=== PATIENT | male | born 1980 | race Caucasian/White ===

== ENCOUNTER 2018-08-03 00:53 | Emergency (ER) | payer OTHER, MEDICAID, SELFPAY ==
[2018-08-03 01:09] VITALS: BP 142/89; PULSE 89; RESP 16; TEMP 36.6; O2SAT 97; BMI 27.6
--- NOTE | 2018-08-03 04:27 | ED_ITS ---
HPI - Recheck/Abnormal Lab/Rx General Chief Complaint: Recheck/Abnormal Lab/Rx Stated Complaint: hearing voices bad rash in groin needs med refill Time Seen by Provider: 08/03/18 04:07 Source: patient Mode of arrival: ambulatory Limitations: no limitations History of Present Illness HPI narrative: Patient is a 38-year-old male presents with need for refill of medication. Apparently states he has jock itch and once Clomid resolved cream refill. He is currently sleeping he brought his suitcase with him. At this time no other complaints. Related Data Home Medications Medication Instructions Recorded Confirmed benztropine 1 mg PO BID 08/03/18 08/03/18 clonazepam 1 mg PO BID PRN 08/03/18 08/03/18 clotrimazole 1 applic TOPICAL TID 08/03/18 08/03/18 fluoxetine 20 mg PO DAILY 08/03/18 08/03/18 gabapentin 400 mg PO QID 08/03/18 08/03/18 paliperidone 9 mg PO QAM 08/03/18 08/03/18 quetiapine 50 mg PO TID PRN 08/03/18 08/03/18 Previous Rx's Medication Instructions Recorded clotrimazole 1 applictn TOP TID #15 gram 08/03/18 quetiapine 50 mg PO TID #90 tab 08/03/18 Allergies Allergy/AdvReac Type Severity Reaction Status Date / Time No Known Drug Allergies Allergy Verified 08/03/18 01:14 Review of Systems Review of Systems GENERAL: Denies chills,fever HEENT: Denies throat pain RESPIRATORY: Denies dyspnea, cough, wheezing CARDIOVASCULAR: Denies chest pain, palpitations GASTROINTESTINAL: Denies nausea, vomiting MUSCULOSKELETAL: Denies extremity pain, injury SKIN: No rash, no laceration, no pruritus NEUROLOGIC: Denies weakness, dizziness, headache, numbness 8 point review of systems is negative except for those stated above and HPI [facility] Medical History (Updated 08/03/18 @ 05:40 by Maegan Martinez DO) Fungal infection (Acute) Schizophrenia (Acute) Social History Smoking Status: Current some day smoker Social History Smoking Status: Current some day smoker Exam Initial Vital Signs Initial Vital Signs: Vital Signs Temperature 97.8 F 08/03/18 01:09 Pulse Rate 89 08/03/18 01:09 Respiratory Rate 16 08/03/18 01:09 Blood Pressure 142/89 H 08/03/18 01:09 Pulse Oximetry 97 08/03/18 01:09 GENERAL: W well-dressed sleeping arousable only answer some questions CARDIOVASCULAR: peripheral pulses in tact, cap refill <2 sec RESPIRATORY: No respiratory distress, speaks in full sentences without difficulty EXTREMITIES: Normal range of motion, no clubbing or edema. Neurovascularly intact NEUROLOGICAL: Cranial nerves II through XII grossly intact. Normal gait and speech. SKIN: Warm, dry, no petechiae, no rashes or lesions. Course Vital Signs - 8 hr 08/03/18 01:09 Temperature 97.8 F Pulse Rate 89 Respiratory Rate 16 Blood Pressure 142/89 H Pulse Oximetry 97 Discharge Plan Departure Patient Disposition: Home Clinical Impression: Encounter for medication refill, Tinea cruris Instructions: Jock Itch Activity Restrictions/Additional Instructions: *You have been diagnosed with jock itch *Continue to take medications as directed clotrimazole 3 times daily *Follow up with your primary care provider in 2-3 days *Return to ER if you should have or any new, worsening or concerning symptoms Prescriptions: New clotrimazole 1 % cream 1 applictn TOP TID Qty: 15 RF: 0 quetiapine 50 mg tablet 50 mg PO TID Qty: 90 RF: 0 No Action gabapentin 400 mg Capsule 400 mg PO QID RF: 0 clonazepam 1 mg Tablet 1 mg PO BID PRN (Reason: Anxiety) RF: 0 fluoxetine 20 mg Tablet 20 mg PO DAILY RF: 0 benztropine 1 mg Tablet 1 mg PO BID RF: 0 clotrimazole 1 % Cream 1 applic TOPICAL TID RF: 0 quetiapine 50 mg Tablet 50 mg PO TID PRN (Reason: Agitation) RF: 0 paliperidone 9 mg Tablet Extended Release 24hr 9 mg PO QAM RF: 0
[2018-08-03 07:26] VITALS: BP 122/68; PULSE 76; RESP 14; O2SAT 98
== END 2018-08-03 07:26 | disposition home or self-care (01) ==
PROVIDERS: Emergency Provider Emergency Medicine
DX: B35.6 Tinea cruris (principal); Z76.0 Encounter for issue of repeat prescription
CPT/HCPCS: 99281; 99282

== ENCOUNTER 2018-08-18 08:09 | Emergency (ER) | payer OTHER, MEDICAID, SELFPAY ==
[2018-08-18 08:12] VITALS: BP 132/89; PULSE 63; RESP 16; TEMP 36.2; O2SAT 97; BMI 27.8
--- NOTE | 2018-08-18 08:18 | ED.PSYCH ---
HPI - Psych General Chief Complaint: Psychiatric Symptoms Stated Complaint: hearing voices Time Seen by Provider: 08/18/18 08:09 Source: patient and EMS Mode of arrival: EMS Limitations: no limitations History of Present Illness HPI Narrative: Patient comes to the emergency department complaining of hallucinations since running out of his meds 2 weeks ago. Patient has a history of schizophrenia, and is on multiple medications for this. He patient states that the voices have not been telling him to harm himself, but does note that he feels that the voices want to kill him. The patient denies any homicidal ideation. He denies any other medical problems besides his schizophrenia. He states that he has not been feeling ill in any other way. He denies pain anywhere. No fevers. No cough or shortness of breath. No trauma. No other complaints at this time. Related Data Home Medications Medication Instructions Recorded Confirmed quetiapine 50 mg PO TID PRN 08/03/18 08/18/18 Previous Rx's Medication Instructions Recorded clotrimazole 1 applictn TOP TID #15 gram 08/03/18 gabapentin 400 mg PO BID #30 cap 08/03/18 benztropine 1 mg PO BID #20 tab 08/18/18 clonazepam 1 mg PO BID PRN #20 tab 08/18/18 clotrimazole 1 applic TOPICAL TID #1 tube 08/18/18 fluoxetine 20 mg PO DAILY #10 tab 08/18/18 gabapentin 400 mg PO QID #30 cap 08/18/18 paliperidone 9 mg PO QAM #10 tab 08/18/18 quetiapine 50 mg PO TID #90 tab 08/18/18 Allergies Allergy/AdvReac Type Severity Reaction Status Date / Time No Known Drug Allergies Allergy Verified 08/18/18 08:12 Review of Systems Constitutional Denies chills, Denies fever(s), Denies lethargy and Denies weakness Eyes Denies change in vision, Denies eye discharge, Denies irritation and Denies loss of vision ENT Ears, Nose, Mouth, and Throat: Denies change in voice, Denies neck pain and Denies sore throat Cardiovascular Denies chest pain, Denies irregular heart rhythm, Denies lightheadedness, Denies palpitations, Denies dyspnea, Denies dyspnea on exertion and Denies orthopnea Respiratory Denies cough, Denies dyspnea, Denies dyspnea on exertion and Denies wheezing Gastrointestinal Gastrointestinal: Denies abdominal pain, Denies change in bowel habits, Denies diarrhea, Denies nausea and Denies vomiting Genitourinary Denies hematuria, Denies flank pain, Denies urinary incontinence and Denies urinary urgency Musculoskeletal Denies neck pain Integumentary/Breasts Denies pruritus, Denies erythema, Denies rash and Denies wounds Neurologic Denies confusion, Denies loss of vision and Denies weakness Psychiatric Denies anxiety, Denies confusion, Denies depression, Reports auditory hallucinations, Denies homicidal ideation and Denies suicidal ideation Endocrine Denies palpitations Hematologic/Lymphatic Denies easy bruising Allergic/Immunologic Denies wheezing [facility] Medical History Fungal infection (Acute) Schizophrenia (Acute) Social History Smoking Status: Current some day smoker Social History Smoking Status: Current some day smoker Exam Initial Vital Signs Initial Vital Signs: Vital Signs Temperature 97.1 F L 08/18/18 08:12 Pulse Rate 63 08/18/18 08:12 Respiratory Rate 16 08/18/18 08:12 Blood Pressure 132/89 08/18/18 08:12 Pulse Oximetry 97 08/18/18 08:12 Const General: cooperative and well developed Nutritional Appearance: well nourished Orientation: alert, awake, oriented x3 and not confused [facility] Head: normocephalic and atraumatic Ears: external ears normal and TM's normal bilaterally Nose: external nose normal and No nasal discharge Face and sinus: sinuses nontender, face symmetric, no sinus tenderness and No dry mucous membranes Mouth: oral mucosae normal and moist mucous membranes Teeth and gingiva: dentition normal Throat: tonsils normal and uvula midline Eyes General: appearance normal, both eyes and all related structures Eyelids: eyelids normal Conjunctivae: conjunctivae normal Sclera: sclerae normal Pupils: PERRL EOM: EOM intact bilaterally Neck Neck: normal visual inspection, trachea midline, No lymphadenopathy, No midline deformity and No JVD Lymphatic: No lymphedema Chest Chest: normal inspection of the chest Resp Effort & Inspection: normal respiratory effort, able to speak in complete sentences, no respiratory distress and no use of accessory muscles Auscultation: clear to auscultation bilaterally, no rales, no rhonchi and no wheezes Cardio Rate: regular rate Rhythm: regular rhythm Heart Sounds: no click, no gallops, no murmurs and no rubs Pulses: normal peripheral pulses GI Inspection: non-distended Palpation: soft, no hepatosplenomegaly, No guarding, No pulsatile mass and No tender Auscultation: normal bowel sounds Back/Spine/Pelvis Back: No CVA tenderness Cervical Spine: cervical ROM normal and No pain with cervical ROM Thoracic/Lumbar Spine: thoracic and lumbar spine normal to inspection Skin General: no rashes or lesions noted, No jaundice and No petechiae Neuro General: alert, oriented x3, gait normal and no focal motor deficits Cranial Nerves: CN's II-XI intact bilaterally Speech: speech normal Other: Patient is slow to answer questions, but is appropriate, alert, and coherent. Extrem General: full ROM, no clubbing, cyanosis or edema, no pedal edema and no calf tenderness Psych Appearance: well kempt Mental Status: mental status grossly normal Attitude: cooperative Thought Content: normal and suicidality Judgment: judgment good Course Course Narrative: Patient was stable in the emergency department, and there is no evidence of him being a danger to himself. He was given doses of the medications on his list that we did have here in the hospital. He was given prescriptions for all of his medications to be filled pharmacy. He was instructed to follow up, as planned, with his prescribing doctor at [facility], as he is scheduled to do on the of this month. We have discussed the usual indications for return. Orders Ordered: Discontinued Medications Benztropine Mesylate (Cogentin) 1 mg PO NOW ONE Stop: 08/18/18 08:19 Last Admin: 08/18/18 08:39 Dose: 1 mg Fluoxetine HCl (Prozac) 20 mg PO NOW ONE Stop: 08/18/18 08:17 Last Admin: 08/18/18 08:40 Dose: 20 mg Gabapentin (Neurontin) 400 mg PO NOW ONE Stop: 08/18/18 08:46 Last Admin: 08/18/18 08:40 Dose: 400 mg Quetiapine Fumarate (Seroquel) 50 mg PO NOW ONE Stop: 08/18/18 08:17 Last Admin: 08/18/18 08:39 Dose: 50 mg Vital Signs - 8 hr 08/18/18 08:12 Temperature 97.1 F L Pulse Rate 63 Respiratory Rate 16 Blood Pressure 132/89 Pulse Oximetry 97 [facility] - Psych Medical Records Attestation: I reviewed the patient's medical records. Discharge Plan Departure Patient Disposition: Home Clinical Impression: Acute psychosis, Chronic schizophrenia Discharge Date/Time: 08/18/18 09:30 Interventions: ED Discharge Assessment Last Done: 08/18/18 09:29 Instructions: DI for Schizophrenia Activity Restrictions/Additional Instructions: Please take your prescriptions to the pharmacy of your choice and get back on your medications. Please keep your appointment on the at [facility], as you are scheduled to do. Prescriptions: Continued clotrimazole 1 % cream 1 applictn TOP TID Qty: 15 RF: 0 gabapentin 400 mg Capsule 400 mg PO QID Qty: 30 RF: 0 clonazepam 1 mg Tablet 1 mg PO BID PRN (Reason: Anxiety) Qty: 20 RF: 0 fluoxetine 20 mg Tablet 20 mg PO DAILY Qty: 10 RF: 0 benztropine 1 mg Tablet 1 mg PO BID Qty: 20 RF: 0 clotrimazole 1 % Cream 1 applic TOPICAL TID Qty: 1 RF: 0 quetiapine 50 mg tablet 50 mg PO TID Qty: 90 RF: 0 paliperidone 9 mg Tablet Extended Release 24hr 9 mg PO QAM Qty: 10 RF: 0 No Action quetiapine 50 mg Tablet 50 mg PO TID PRN (Reason: Agitation) RF: 0 gabapentin 400 mg capsule 400 mg PO BID Qty: 30 RF: 0
--- NOTE | 2018-08-18 08:23 | ED_ITS ---
HPI - Psych General Chief Complaint: Psychiatric Symptoms Stated Complaint: hearing voices Time Seen by Provider: 08/18/18 08:09 Source: patient and EMS Mode of arrival: EMS Limitations: no limitations History of Present Illness HPI Narrative: Patient comes to the emergency department complaining of hallucinations since running out of his meds 2 weeks ago. Patient has a history of schizophrenia, and is on multiple medications for this. He patient states that the voices have not been telling him to harm himself, but does note that he feels that the voices want to kill him. The patient denies any homicidal id eation. He denies any other medical problems besides his schizophrenia. He states that he has not been feeling ill in any other way. He denies pain anywhere. No fevers. No cough or shortness of breath. No trauma. No other complaints at this time. Related Data Home Medications Medication Instructions Recorded Confirmed quetiapine 50 mg PO TID PRN 08/03/18 08/18/18 Previous Rx's Medication Instructions Recorded clotrimazole 1 applictn TOP TID #15 gram 08/03/18 gabapentin 400 mg PO BID #30 cap 08/03/18 benztropine 1 mg PO BID #20 tab 08/18/18 clonazepam 1 mg PO BID PRN #20 tab 08/18/18 clotrimazole 1 applic TOPICAL TID #1 tube 08/18/18 fluoxetine 20 mg PO DAILY #10 tab 08/18/18 gabapentin 400 mg PO QID #30 cap 08/18/18 paliperidone 9 mg PO QAM #10 tab 08/18/18 quetiapine 50 mg PO TID #90 tab 08/18/18 Allergies Allergy/AdvReac Type Severity Reaction Status Date / Time No Known Drug Allergies Allergy Verified 08/18/18 08:12 Review of Systems Constitutional Denies chills, Denies fever(s), Denies lethargy and Denies weakness Eyes Denies change in vision, Denies eye discharge, Denies irritation and Denies loss of vision ENT Ears, Nose, Mouth, and Throat: Denies change in voice, Denies neck pain and Denies sore throat Cardiovascular Denies chest pain, Denies irregular heart rhythm, Denies lightheadedness, Denies palpitations, Denies dyspnea, Denies dyspnea on exertion and Denies orthopnea Respiratory Denies cough, Denies dyspnea, Denies dyspnea on exertion and Denies wheezing Gastrointestinal Gastrointestinal: Denies abdominal pain, Denies change in bowel habits, Denies diarrhea, Denies nausea and Denies vomiting Genitourinary Denies hematuria, Denies flank pain, Denies urinary incontinence and Denies urinary urgency Musculoskeletal Denies neck pain Integumentary/Breasts Denies pruritus, Denies erythema, Denies rash and Denies wounds Neurologic Denies confusion, Denies loss of vision and Denies weakness Psychiatric Denies anxiety, Denies confusion, Denies depression, Reports auditory hallucinations, Denies homicidal ideation and Denies suicidal ideation Endocrine Denies palpitations Hematologic/Lymphatic Denies easy bruising Allergic/Immunologic Denies wheezing [facility] Medical History Fungal infection (Acute) Schizophrenia (Acute) Social History Smoking Status: Current some day smoker Social History Smoking Status: Current some day smoker Exam Initial Vital Signs Initial Vital Signs: Vital Signs Temperature 97.1 F L 08/18/18 08:12 Pulse Rate 63 08/18/18 08:12 Respiratory Rate 16 08/18/18 08:12 Blood Pressure 132/89 08/18/18 08:12 Pulse Oximetry 97 08/18/18 08:12 Const General: cooperative and well developed Nutritional Appearance: well nourished Orientation: alert, awake, oriented x3 and not confused [facility] Head: normocephalic and atraumatic Ears: external ears normal and TM's normal bilaterally Nose: external nose normal and No nasal discharge Face and sinus: sinuses nontender, face symmetric, no sinus tenderness and No dry mucous membranes Mouth: oral mucosae normal and moist mucous membranes Teeth and gingiva: dentition normal Throat: tonsils normal and uvula midline Eyes General: appearance normal, both eyes and all related structures Eyelids: eyelids normal Conjunctivae: conjunctivae normal Sclera: sclerae normal Pupils: PERRL EOM: EOM intact bilaterally Neck Neck: normal visual inspection, trachea midline, No lymphadenopathy, No midline deformity and No JVD Lymphatic: No lymphedema Chest Chest: normal inspection of the chest Resp Effort & Inspection: normal respiratory effort, able to speak in complete sentences, no respiratory distress and no use of accessory muscles Auscultation: clear to auscultation bilaterally, no rales, no rhonchi and no wheezes Cardio Rate: regular rate Rhythm: regular rhythm Heart Sounds: no click, no gallops, no murmurs and no rubs Pulses: normal peripheral pulses GI Inspection: non-distended Palpation: soft, no hepatosplenomegaly, No guarding, No pulsatile mass and No tender Auscultation: normal bowel sounds Back/Spine/Pelvis Back: No CVA tenderness Cervical Spine: cervical ROM normal and No pain with cervical ROM Thoracic/Lumbar Spine: thoracic and lumbar spine normal to inspection Skin General: no rashes or lesions noted, No jaundice and No petechiae Neuro General: alert, oriented x3, gait normal and no focal motor deficits Cranial Nerves: CN's II-XI intact bilaterally Speech: speech normal Other: Patient is slow to answer questions, but is appropriate, alert, and coherent. Extrem General: full ROM, no clubbing, cyanosis or edema, no pedal edema and no calf tenderness Psych Appearance: well kempt Mental Status: mental status grossly normal Attitude: cooperative Thought Content: normal and suicidality Judgment: judgment good Course Course Narrative: Patient was stable in the emergency department, and there is no evidence of him being a danger to himself. He was given doses of the medications on his list that we did have here in the hospital. He was given prescriptions for all of his medications to be filled pharmacy. He was instructed to follow up, as planned, with his prescribing doctor at [facility], as he is scheduled to do on the of this month. We have discussed the usual indications for return. Orders Ordered: Discontinued Medications Benztropine Mesylate (Cogentin) 1 mg PO NOW ONE Stop: 08/18/18 08:19 Last Admin: 08/18/18 08:39 Dose: 1 mg Fluoxetine HCl (Prozac) 20 mg PO NOW ONE Stop: 08/18/18 08:17 Last Admin: 08/18/18 08:40 Dose: 20 mg Gabapentin (Neurontin) 400 mg PO NOW ONE Stop: 08/18/18 08:46 Last Admin: 08/18/18 08:40 Dose: 400 mg Quetiapine Fumarate (Seroquel) 50 mg PO NOW ONE Stop: 08/18/18 08:17 Last Admin: 08/18/18 08:39 Dose: 50 mg Vital Signs - 8 hr 08/18/18 08:12 Temperature 97.1 F L Pulse Rate 63 Respiratory Rate 16 Blood Pressure 132/89 Pulse Oximetry 97 [facility] - Psych Medical Records Attestation: I reviewed the patient's medical records. Discharge Plan Departure Patient Disposition: Home Clinical Impression: Acute psychosis, Chronic schizophrenia Discharge Date/Time: 08/18/18 09:30 Interventions: ED Discharge Assessment Last Done: 08/18/18 09:29 Instructions: DI for Schizophrenia Activity Restrictions/Additional Instructions: Please take your prescriptions to the pharmacy of your choice and get back on your medications. Please keep your appointment on the at [facility], as you are scheduled to do. Prescriptions: Continued clotrimazole 1 % cream 1 applictn TOP TID Qty: 15 RF: 0 gabapentin 400 mg Capsule 400 mg PO QID Qty: 30 RF: 0 clonazepam 1 mg Tablet 1 mg PO BID PRN (Reason: Anxiety) Qty: 20 RF: 0 fluoxetine 20 mg Tablet 20 mg PO DAILY Qty: 10 RF: 0 benztropine 1 mg Tablet 1 mg PO BID Qty: 20 RF: 0 clotrimazole 1 % Cream 1 applic TOPICAL TID Qty: 1 RF: 0 quetiapine 50 mg tablet 50 mg PO TID Qty: 90 RF: 0 paliperidone 9 mg Tablet Extended Release 24hr 9 mg PO QAM Qty: 10 RF: 0 No Action quetiapine 50 mg Tablet 50 mg PO TID PRN (Reason: Agitation) RF: 0 gabapentin 400 mg capsule 400 mg PO BID Qty: 30 RF: 0
[2018-08-18] MEDS: BENZTROPINE 1 MG TABLET PO (08:39)
[2018-08-18] MEDS: QUETIAPINE 25 MG TABLET 50 MG PO (08:39)
[2018-08-18] MEDS: FLUoxetine 20 MG CAPSULE PO (08:40)
[2018-08-18] MEDS: GABAPENTIN 400 MG CAPSULE PO (08:40)
[2018-08-18 09:25] VITALS: BP 117/58; PULSE 66; RESP 17; O2SAT 96
[2018-08-18 09:29] VITALS: BP 117/58; PULSE 67; RESP 20; O2SAT 96
== END 2018-08-18 09:30 | disposition home or self-care (01) ==
LOC: ED 09:04
PROVIDERS: Emergency Provider Emergency Medicine
DX: F20.5 Residual schizophrenia (principal)
CPT/HCPCS: 99282; 99283

== ENCOUNTER 2018-08-27 02:59 | Emergency (ER) | payer OTHER, MEDICAID, SELFPAY ==
[2018-08-27 03:09] VITALS: BP 135/98; PULSE 73; RESP 18; TEMP 36.5; O2SAT 97; BMI 27.0
[2018-08-27] MEDS: QUETIAPINE 25 MG TABLET 50 MG PO (03:45)
--- NOTE | 2018-08-27 03:47 | ED_ITS ---
HPI - Psych General Chief Complaint: Psychiatric Symptoms Stated Complaint: schizophrenia Time Seen by Provider: 08/27/18 02:59 Source: patient Mode of arrival: ambulatory Limitations: no limitations History of Present Illness HPI Narrative: 38-year-old male smoker with history of schizophrenia presents with a chief complaint of auditory hallucinations which make him feel paranoid. He denies any desire to hurt himself or others. He denies the use of alcohol or street drugs currently. He has run out of his psychotropic medications and is hoping for refills. He was seen a few days ago under similar circumstances and was given some meds here in the ED and had scrips filled, but those have since run out. He has an appointment on 08/30 MD complaint: other Onset (ago): hour(s) Duration: constant History of same: Yes Relieving factors: medication Context: not taking psychiatric medications Associated psychiatric symptoms: none Associated symptoms: denies other symptoms Treatments prior to arrival: none Related Data Previous Rx's Medication Instructions Recorded clotrimazole 1 applictn TOP TID #15 gram 08/03/18 clonazepam 1 mg PO BID PRN #20 tab 08/18/18 clotrimazole 1 applic TOPICAL TID #1 tube 08/18/18 gabapentin 400 mg PO QID #30 cap 08/18/18 quetiapine 50 mg PO TID #90 tab 08/18/18 benztropine 1 mg PO BID #20 tab 08/27/18 fluoxetine 20 mg PO DAILY #10 tab 08/27/18 gabapentin 400 mg PO BID #30 cap 08/27/18 paliperidone 9 mg PO QAM #10 tab 08/27/18 quetiapine 50 mg PO TID PRN #30 tab 08/27/18 Allergies Allergy/AdvReac Type Severity Reaction Status Date / Time No Known Drug Allergies Allergy Verified 08/18/18 08:12 Review of Systems Constitutional Denies chills, Denies fever(s), Denies lethargy and Denies weakness Eyes Denies change in vision, Denies eye discharge, Denies irritation and Denies loss of vision ENT Ears, Nose, Mouth, and Throat: Denies change in voice, Denies neck pain and Denies sore throat Cardiovascular Denies chest pain, Denies irregular heart rhythm, Denies lightheadedness, Denies palpitations, Denies dyspnea, Denies dyspnea on exertion and Denies orthopnea Respiratory Denies cough, Denies dyspnea, Denies dyspnea on exertion and Denies wheezing Gastrointestinal Gastrointestinal: Denies abdominal pain, Denies change in bowel habits, Denies diarrhea, Denies nausea and Denies vomiting Genitourinary Denies hematuria, Denies flank pain, Denies urinary incontinence and Denies urinary urgency Musculoskeletal Denies neck pain Integumentary/Breasts Denies pruritus, Denies erythema, Denies rash and Denies wounds Neurologic Denies confusion, Denies loss of vision and Denies weakness Psychiatric Denies anxiety, Denies confusion, Denies depression, Reports paranoia, Reports hallucinations, Denies homicidal ideation and Denies suicidal ideation Endocrine Denies palpitations Hematologic/Lymphatic Denies easy bruising Allergic/Immunologic Denies wheezing FOR[facility]LY [facility], LATER [facility] Medical History Fungal infection (Acute) Schizophrenia (Acute) Social History Smoking Status: Current some day smoker Social History Smoking Status: Current some day smoker Exam Narrative Exam Narrative: GENERAL: 38M resting comfortably, making good eye contact. Speaking clearly HEAD: Atraumatic. Normocephalic. No temporal or scalp tenderness. EYES: Pupils equal round and reactive. Extraocular motions intact. No scleral icterus. No injection or drainage. ENT: Nose without bleeding, purulent drainage or septal hematoma. Throat without erythema, tonsillar hypertrophy or exudate. Uvula midline. Airway patent. NECK: Trachea midline. No JVD or lymphadenopathy. Supple, nontender, no meningeal signs. CARDIOVASCULAR: Regular rate and rhythm without murmurs, gallops, or rubs. RESPIRATORY: Clear to auscultation. Breath sounds equal bilaterally. No wheezes, rales, or rhonchi. GASTROINTESTINAL: Abdomen soft, non-tender, nondistended. No hepato- splenomegaly, or palpable masses. No guarding. EXTREMITIES: No clubbing, cyanosis, or edema. No joint tenderness, effusion, or edema noted. BACK: Nontender without deformity or crepitance. No flank tenderness. NEURO: AOx3. SKIN: No rash or erythema. Initial Vital Signs Initial Vital Signs: Vital Signs Temperature 97.7 F 08/27/18 03:09 Pulse Rate 73 08/27/18 03:09 Respiratory Rate 18 08/27/18 03:09 Blood Pressure 135/98 H 08/27/18 03:09 Pulse Oximetry 97 08/27/18 03:09 Course Orders Ordered: Benztropine Mesylate (Cogentin) 1 mg PO BEDTIME MODE Gabapentin (Neurontin) 400 mg PO TID MODE Last Admin: 08/27/18 03:49 Dose: 400 mg Discontinued Medications Fluoxetine HCl (Prozac) 10 mg PO NOW ONE Stop: 08/27/18 03:15 Gabapentin (Neurontin) 400 mg PO BEDTIME MODE Quetiapine Fumarate (Seroquel) 50 mg PO NOW ONE Stop: 08/27/18 03:15 Last Admin: 08/27/18 03:45 Dose: 50 mg Vital Signs - 8 hr 08/27/18 03:09 Temperature 97.7 F Pulse Rate 73 Respiratory Rate 18 Blood Pressure 135/98 H Pulse Oximetry 97 Discharge Plan Departure Patient Disposition: Home Clinical Impression: Acute psychosis, Chronic schizophrenia Instructions: DI for Schizophrenia Activity Restrictions/Additional Instructions: Take your medications as directed Follow up at your appointment on August 30 as planned Return if worse Prescriptions: Continued gabapentin 400 mg capsule 400 mg PO BID Qty: 30 RF: 0 fluoxetine 20 mg Tablet 20 mg PO DAILY Qty: 10 RF: 0 benztropine 1 mg Tablet 1 mg PO BID Qty: 20 RF: 0 quetiapine 50 mg Tablet 50 mg PO TID PRN (Reason: Agitation) Qty: 30 RF: 0 paliperidone 9 mg Tablet Extended Release 24hr 9 mg PO QAM Qty: 10 RF: 0 No Action clotrimazole 1 % cream 1 applictn TOP TID Qty: 15 RF: 0 gabapentin 400 mg Capsule 400 mg PO QID Qty: 30 RF: 0 clonazepam 1 mg Tablet 1 mg PO BID PRN (Reason: Anxiety) Qty: 20 RF: 0 clotrimazole 1 % Cream 1 applic TOPICAL TID Qty: 1 RF: 0 quetiapine 50 mg tablet 50 mg PO TID Qty: 90 RF: 0
[2018-08-27] MEDS: GABAPENTIN 100 MG CAPSULE 400 MG PO (03:49)
--- NOTE | 2018-08-27 03:50 | PC.NURSE ---
gabapentin given from night pharmacy as 1 300mg and 1 100mg cap to total 400mg cap po.
[2018-08-27 04:25] VITALS: BP 144/82; PULSE 81; RESP 14; O2SAT 98
== END 2018-08-27 04:26 | disposition home or self-care (01) ==
PROVIDERS: Emergency Provider Emergency Medicine
DX: F23 Brief psychotic disorder (principal); F20.9 Schizophrenia, unspecified
CPT/HCPCS: 99282; 99283

== ENCOUNTER 2018-08-28 22:42 | Emergency (ER) | payer OTHER, MEDICAID, SELFPAY ==
[2018-08-28 22:52] VITALS: BP 149/91; PULSE 100; RESP 14; TEMP 36.8; O2SAT 95; BMI 32.5
--- NOTE | 2018-08-28 23:19 | ED.PSYCH ---
HPI - Psych General Chief Complaint: Psychiatric Symptoms Stated Complaint: SORE FEET, WANTS BRAIN IMAGING DONE Time Seen by Provider: 08/28/18 22:57 Source: patient Mode of arrival: ambulatory Limitations: no limitations History of Present Illness HPI Narrative: Patient is a 38-year-old male. Was seen here couple nights ago and diagnosed with acute psychosis and had his schizophrenia medicine refill. He states that he has feel this medication. He states that the voices he is hearing or much improved from the other night. He states he is not suicidal. Not homicidal. Has a follow-up on Sunday morning with a mental health provider. Has a follow-up with a primary provider later on this month. He states that he is taking his medications. Denies any alcohol or drug use. He states that he is here for 2 reasons. He states that he has a sore on the bottom of his right foot that is causing him quite a bit of discomfort. He states that is because his shoes rubbing him in this area. He is also here for ?brain imaging? he states that ?2 particles ?are ?tangled ?in his head. He asked if there was a procedure were you remove a portion of your left eye to do with the ?particles ?in your ?cranium ? Related Data Previous Rx's Medication Instructions Recorded clotrimazole 1 applictn TOP TID #15 gram 08/03/18 clonazepam 1 mg PO BID PRN #20 tab 08/18/18 clotrimazole 1 applic TOPICAL TID #1 tube 08/18/18 gabapentin 400 mg PO QID #30 cap 08/18/18 quetiapine 50 mg PO TID #90 tab 08/18/18 benztropine 1 mg PO BID #20 tab 08/27/18 fluoxetine 20 mg PO DAILY #10 tab 08/27/18 gabapentin 400 mg PO BID #30 cap 08/27/18 paliperidone 9 mg PO QAM #10 tab 08/27/18 quetiapine 50 mg PO TID PRN #30 tab 08/27/18 Allergies Allergy/AdvReac Type Severity Reaction Status Date / Time No Known Drug Allergies Allergy Verified 08/28/18 22:52 Review of Systems Constitutional Denies frequent falls and Denies headache(s) Eyes Denies change in vision ENT Ears, Nose, Mouth, and Throat: Denies facial pain, Denies headache(s) and Denies disequilibrium Cardiovascular Denies chest pain, Denies syncope and Denies dyspnea Respiratory Denies dyspnea Gastrointestinal Gastrointestinal: Denies abdominal pain Musculoskeletal Denies myalgias and Denies arthralgias Integumentary/Breasts Denies rash Neurologic Denies behavioral changes, Denies confusion, Denies syncope, Denies frequent falls, Denies headache(s), Denies memory loss, Denies paresthesias and Denies disequilibrium Psychiatric Denies behavioral changes, Denies confusion, Reports auditory hallucinations, Denies memory loss, Denies panic attacks, Denies visual hallucinations, Denies homicidal ideation and Denies suicidal ideation Hematologic/Lymphatic Denies easy bleeding and Denies easy bruising FOR[facility]LY [facility], LATER [facility] Medical History Fungal infection (Acute) Schizophrenia (Acute) Social History Smoking Status: Current some day smoker Exam Initial Vital Signs Initial Vital Signs: Vital Signs Temperature 98.2 F 08/28/18 22:52 Pulse Rate 100 H 08/28/18 22:52 Respiratory Rate 14 08/28/18 22:52 Blood Pressure 149/91 H 08/28/18 22:52 Pulse Oximetry 95 08/28/18 22:52 Const General: cooperative, comfortable, well developed, well groomed and No acute distress Orientation: alert, awake, oriented x3, oriented to person, oriented to place, oriented to time and not confused Limitations: mental status not altered HENMT Head: normal to inspection and normocephalic Resp Effort & Inspection: normal respiratory effort Cardio Rate: regular rate Skin Other: Patient with a 2 mm blister on the back of his right heel right where the back of his shoe rubs this area. He also has findings consistent with tinea of his toes Neuro General: alert, awake, oriented x3, gait normal and moves all extremities Speech: speech normal Motor: muscle tone normal throughout Sensory Exam: no sensory deficits noted Extrem General: normal to inspection and capillary refill normal Psych Appearance: grossly normal, well kempt and not disheveled Speech and Movement: speech and movement normal, not agitated, speech clear, speech not pressured, not restless and movement not slowed Mood: congruent mood Affect: normal affect Attitude: cooperative Thought Process: illogical Thought Content: no hallucinations, no homicidality, no obsessions and suicidality Judgment: fair Course Vital Signs - 8 hr 08/28/18 22:52 Temperature 98.2 F Pulse Rate 100 H Respiratory Rate 14 Blood Pressure 149/91 H Pulse Oximetry 95 MDM - Psych MDM Narrative Medical decision making narrative: Patient with a blister on the back of his right heel. Most likely caused by rubbing of his shoe. He was provided a bandage. Patient was alert and oriented x3. Was well dressed. Was well hydrated. Was well fed. Send no acute distress. I do not feel that he meets criteria for grave disability. He denies homicidal or suicidality. He knew of his appointment on Sunday with his mental health provider. He states he could not remember the exact time but he did have it written down. He also states that he has an appointment with his primary provider either at the end of this month with the beginning of next month. Again he cannot provide an exact date or time but stated that he did have a written down. He is currently taking his medications. He reports an improvement of his auditory hallucinations since his visit a couple days ago. Most likely because he is taking his medication. I tried to inform the patient that there was no indication to obtain ?brain imaging ?tried to reassure him that I thought that we should get him in to see his mental health provider on Sunday before any imaging is performed. Patient was given return precautions and follow-up instructions. He expressed understanding and agreement with plan. Discharge Plan Departure Patient Disposition: Home Clinical Impression: Friction blisters of the skin Instructions: DI for Blisters Activity Restrictions/Additional Instructions: Continue taking all of your medications as directed. Be sure to keep your appointment that she have scheduled with your mental health provider on Sunday. Also be sure to keep your appointment with her primary provider later on this month. I recommend that you change your socks often. You can return to the emergency department for any new or worsening symptoms Prescriptions: No Action clotrimazole 1 % cream 1 applictn TOP TID Qty: 15 RF: 0 gabapentin 400 mg Capsule 400 mg PO QID Qty: 30 RF: 0 clonazepam 1 mg Tablet 1 mg PO BID PRN (Reason: Anxiety) Qty: 20 RF: 0 clotrimazole 1 % Cream 1 applic TOPICAL TID Qty: 1 RF: 0 quetiapine 50 mg tablet 50 mg PO TID Qty: 90 RF: 0 gabapentin 400 mg capsule 400 mg PO BID Qty: 30 RF: 0 fluoxetine 20 mg Tablet 20 mg PO DAILY Qty: 10 RF: 0 benztropine 1 mg Tablet 1 mg PO BID Qty: 20 RF: 0 quetiapine 50 mg Tablet 50 mg PO TID PRN (Reason: Agitation) Qty: 30 RF: 0 paliperidone 9 mg Tablet Extended Release 24hr 9 mg PO QAM Qty: 10 RF: 0
== END 2018-08-28 23:30 | disposition home or self-care (01) ==
PROVIDERS: Emergency Provider Emergency Medicine
DX: S90.821A Blister (nonthermal), right foot, initial encounter (principal); R44.0 Auditory hallucinations
CPT/HCPCS: 99282

== ENCOUNTER 2018-08-31 21:58 | Emergency (ER) | payer OTHER, MEDICAID, SELFPAY ==
--- NOTE | 2018-08-31 22:03 | ED_ITS ---
HPI - Altered Mental Status General Chief Complaint: Shortness of Breath/Dyspnea Stated Complaint: Altered mental status Time Seen by Provider: 08/31/18 22:03 Source: patient and EMS Mode of arrival: EMS History of Present Illness HPI narrative: Patient is a 38-year-old male who I evaluated in this emergency department in the past. He arrived by EMS after they were called to local gas [facility] where the report was that the patient was ?having a mental breakdown? EMS was unsure the exact situation. Patient stated that he called 911 because he was having problems breathing. Patient is known as schizophrenia. Last time I evaluated the patient he was supposed to have a follow-up appoint with his mental health provider. Patient states that he missed that appointment. He states that he is taking his other medications. States that he still is hearing voices. No thoughts of hurting himself or others. Patient states he feels like he is wheezing. States he does have an inhaler in the bag that he has with him. Patient states that he is using the inhaler occasionally. Related Data Previous Rx's Medication Instructions Recorded clotrimazole 1 applictn TOP TID #15 gram 08/03/18 clonazepam 1 mg PO BID PRN #20 tab 08/18/18 clotrimazole 1 applic TOPICAL TID #1 tube 08/18/18 gabapentin 400 mg PO QID #30 cap 08/18/18 quetiapine 50 mg PO TID #90 tab 08/18/18 benztropine 1 mg PO BID #20 tab 08/27/18 fluoxetine 20 mg PO DAILY #10 tab 08/27/18 gabapentin 400 mg PO BID #30 cap 08/27/18 paliperidone 9 mg PO QAM #10 tab 08/27/18 quetiapine 50 mg PO TID PRN #30 tab 08/27/18 gabapentin 400 mg PO BID #60 cap 08/31/18 Allergies Allergy/AdvReac Type Severity Reaction Status Date / Time No Known Drug Allergies Allergy Verified 08/28/18 22:52 Review of Systems Constitutional Denies fever(s) Cardiovascular Denies chest pain and Reports dyspnea Respiratory Reports cough, Reports dyspnea and Reports wheezing Gastrointestinal Gastrointestinal: Denies abdominal pain Integumentary/Breasts Denies rash Psychiatric Reports hallucinations, Denies homicidal ideation and Denies suicidal ideation Hematologic/Lymphatic Denies easy bleeding and Denies easy bruising Allergic/Immunologic Reports wheezing Exam Initial Vital Signs Initial Vital Signs: Vital Signs Temperature 97.8 F 08/31/18 22:04 Pulse Rate 91 H 08/31/18 22:04 Respiratory Rate 15 08/31/18 22:04 Blood Pressure 132/82 08/31/18 22:04 Pulse Oximetry 96 08/31/18 22:04 Const General: comfortable, well groomed and No acute distress Orientation: alert, awake, oriented to person and oriented to place [facility] Head: normal to inspection and normocephalic Resp Effort & Inspection: normal respiratory effort, not labored and not tachypneic Auscultation: wheezes (Bilateral) Cardio Rate: regular rate Rhythm: regular rhythm Skin Lesions: no lesions Rashes: no rashes Neuro General: alert and awake Speech: speech normal Extrem General: capillary refill normal Psych Appearance: grossly normal and well kempt Speech and Movement: not agitated Mood: congruent mood and not manic Affect: No hostile Attitude: cooperative Thought Content: suicidality Judgment: fair Course Orders Ordered: Discontinued Medications Albuterol/Ipratropium (Duoneb) 3 ml INH NOW ONE Stop: 08/31/18 22:09 Last Admin: 08/31/18 22:29 Dose: 3 ml Vital Signs - 8 hr 08/31/18 22:04 08/31/18 22:08 08/31/18 22:29 Temperature 97.8 F 97.8 F Pulse Rate 91 H 91 H 83 Respiratory Rate 15 15 18 Blood Pressure 132/82 Blood Pressure [Left Arm] 132/82 Pulse Oximetry 96 96 99 08/31/18 23:19 Temperature 97.7 F Pulse Rate 83 Respiratory Rate 16 Blood Pressure 134/104 H Blood Pressure [Left Arm] Pulse Oximetry 95 MDM - Altered Mental Status MDM Narrative Medical decision making narrative: Patient received DuoNeb which did seem to improve his wheezing quite a bit. He also states that improved his symptoms. He does have albuterol in his bag with a AeroChamber. He asked for refill of his gabapentin. No other signs of trauma. Patient is not suicidal. He states he is taking all of his other medications. He stated that he was going to reschedule his follow-up with his mental health provider. He stated that he felt okay leaving. Discharge Plan Departure Patient Disposition: Home Clinical Impression: Reactive airway disease Qualifiers: Asthma severity: unspecified severity Asthma persistence: unspecified Asthma complication type: uncomplicated Qualified Code(s): J45.909 - Unspecified asthma, uncomplicated Discharge Date/Time: 08/31/18 23:21 Interventions: ED Discharge Assessment Last Done: 08/31/18 23:19 Instructions: Reactive Airway Disease-Adult Activity Restrictions/Additional Instructions: Recommend that you use your albuterol inhaler every 4 hours for the next 24 hours. After that you can use it as needed. Contact your primary doctor for a follow-up. Prescriptions: New gabapentin 400 mg capsule 400 mg PO BID Qty: 60 RF: 0 No Action clotrimazole 1 % cream 1 applictn TOP TID Qty: 15 RF: 0 gabapentin 400 mg Capsule 400 mg PO QID Qty: 30 RF: 0 clonazepam 1 mg Tablet 1 mg PO BID PRN (Reason: Anxiety) Qty: 20 RF: 0 clotrimazole 1 % Cream 1 applic TOPICAL TID Qty: 1 RF: 0 quetiapine 50 mg tablet 50 mg PO TID Qty: 90 RF: 0 gabapentin 400 mg capsule 400 mg PO BID Qty: 30 RF: 0 fluoxetine 20 mg Tablet 20 mg PO DAILY Qty: 10 RF: 0 benztropine 1 mg Tablet 1 mg PO BID Qty: 20 RF: 0 quetiapine 50 mg Tablet 50 mg PO TID PRN (Reason: Agitation) Qty: 30 RF: 0 paliperidone 9 mg Tablet Extended Release 24hr 9 mg PO QAM Qty: 10 RF: 0
[2018-08-31 22:04] VITALS: BP 132/82; PULSE 91; RESP 15; TEMP 36.6; O2SAT 96
[2018-08-31 22:08] VITALS: BP 132/82; PULSE 91; RESP 15; TEMP 36.6; O2SAT 96; BMI 31.3
[2018-08-31 22:29] VITALS: PULSE 83; RESP 18; O2SAT 99
[2018-08-31] MEDS: ALBUTEROL/IPRATROPIUM 3 ML AMPUL INH (22:29)
[2018-08-31 23:19] VITALS: BP 134/104; PULSE 83; RESP 16; TEMP 36.5; O2SAT 95
== END 2018-08-31 23:21 | disposition home or self-care (01) ==
PROVIDERS: Emergency Provider Emergency Medicine
DX: J45.909 Unspecified asthma, uncomplicated (principal)
CPT/HCPCS: 94640; 99282; 99283

== ENCOUNTER 2018-09-02 20:48 | Emergency (ER) | payer OTHER, MEDICAID, SELFPAY ==
[2018-09-02 21:17] VITALS: BP 124/78; PULSE 80; RESP 16; TEMP 36.8; O2SAT 96; BMI 27.8
[2018-09-03 01:27] VITALS: BP 102/67; PULSE 62; RESP 13; TEMP 36.2; O2SAT 97
--- NOTE | 2018-09-03 03:51 | ED_ITS ---
HPI - Skin/Abscess/Foreign Bdy General Chief complaint: Skin/Abscess/Foreign Body Stated complaint: Rash Time Seen by Provider: 09/03/18 00:39 Source: patient and old records reviewed Mode of arrival: ambulatory Limitations: no limitations History of Present Illness HPI narrative: the patient is a 38-year-old male, with history of schizophrenia, presenting with a rash on his buttocks. He states that it is pruritic and painful in nature. He has had frequent emergency department visits here recently. For medication refills and other various things. He is homeless. He states that he has had a rash on his buttocks initial time and feels like it might be worse. He was previously seen for tinea cruris. He is sleeping initially appears comfortable. He really has no other complaints today. Unclear how long this rash has been there. MD complaint: rash Related Data Previous Rx's Medication Instructions Recorded clotrimazole 1 applictn TOP TID #15 gram 08/03/18 clonazepam 1 mg PO BID PRN #20 tab 08/18/18 clotrimazole 1 applic TOPICAL TID #1 tube 08/18/18 gabapentin 400 mg PO QID #30 cap 08/18/18 quetiapine 50 mg PO TID #90 tab 08/18/18 benztropine 1 mg PO BID #20 tab 08/27/18 fluoxetine 20 mg PO DAILY #10 tab 08/27/18 gabapentin 400 mg PO BID #30 cap 08/27/18 paliperidone 9 mg PO QAM #10 tab 08/27/18 quetiapine 50 mg PO TID PRN #30 tab 08/27/18 gabapentin 400 mg PO BID #60 cap 08/31/18 clotrimazole 1 applictn TOP BID 14 Days #56.7 09/03/18 gram Allergies Allergy/AdvReac Type Severity Reaction Status Date / Time No Known Drug Allergies Allergy Verified 08/28/18 22:52 Review of Systems Review of Systems GENERAL: Denies chills,fever HEENT: Denies throat pain RESPIRATORY: Denies dyspnea, cough, wheezing CARDIOVASCULAR: Denies chest pain, palpitations GASTROINTESTINAL: Denies nausea, vomiting MUSCULOSKELETAL: Denies extremity pain, injury SKIN: See HPI NEUROLOGIC: Denies weakness, dizziness, headache, numbness 8 point review of systems is negative except for those stated above and HPI REPLACED BY [facility] Medical History Fungal infection (Acute) Schizophrenia (Acute) Social History Smoking Status: Current some day smoker Social History Smoking Status: Current some day smoker Exam Initial Vital Signs Initial Vital Signs: Vital Signs Temperature 98.2 F 09/02/18 21:17 Pulse Rate 80 09/02/18 21:17 Respiratory Rate 16 09/02/18 21:17 Blood Pressure 124/78 09/02/18 21:17 Pulse Oximetry 96 09/02/18 21:17 GENERAL: Sleeping easily arousable calm cooperative CARDIOVASCULAR: peripheral pulses in tact, cap refill <2 sec RESPIRATORY: No respiratory distress, speaks in full sentences without difficulty EXTREMITIES: Normal range of motion, no clubbing or edema. Neurovascularly intact NEUROLOGICAL: Cranial nerves II through XII grossly intact. Normal gait and speech. SKIN: Some acne noted on the buttocks no all large abscess fluctuation or induration. Some possible Araceli between the buttocks themselves. No vesicles. No petechiae. Course Vital Signs - 8 hr 09/02/18 21:17 09/03/18 01:27 Temperature 98.2 F 97.1 F L Pulse Rate 80 62 Respiratory Rate 16 13 Blood Pressure 124/78 102/67 Pulse Oximetry 96 97 MDM - Skin/Abscess/Foreign Bdy MDM Narrative Medical decision making narrative: I have given patient soap and a washcloth and encouraged him to keep this clean as possible. Discharge Plan Departure Patient Disposition: Home Clinical Impression: Araceli albicans infection Discharge Date/Time: 09/03/18 01:33 Interventions: ED Discharge Assessment Last Done: 09/03/18 01:27 Instructions: Yeast Infection-Skin Activity Restrictions/Additional Instructions: *You have been diagnosed with fungus *What to do: Keep area clean and dry with soap and water *Continue to take medications as directed Apply Clotrimazole cream 2 times daily *Follow up with your primary care provider in 2-3 days *Return to ER if you should have any new, worsening or concerning symptoms Prescriptions: New clotrimazole 1 % ointment 1 applictn TOP BID 14 Days Qty: 56.7 RF: 0 No Action clotrimazole 1 % cream 1 applictn TOP TID Qty: 15 RF: 0 gabapentin 400 mg Capsule 400 mg PO QID Qty: 30 RF: 0 clonazepam 1 mg Tablet 1 mg PO BID PRN (Reason: Anxiety) Qty: 20 RF: 0 clotrimazole 1 % Cream 1 applic TOPICAL TID Qty: 1 RF: 0 quetiapine 50 mg tablet 50 mg PO TID Qty: 90 RF: 0 gabapentin 400 mg capsule 400 mg PO BID Qty: 30 RF: 0 fluoxetine 20 mg Tablet 20 mg PO DAILY Qty: 10 RF: 0 benztropine 1 mg Tablet 1 mg PO BID Qty: 20 RF: 0 quetiapine 50 mg Tablet 50 mg PO TID PRN (Reason: Agitation) Qty: 30 RF: 0 paliperidone 9 mg Tablet Extended Release 24hr 9 mg PO QAM Qty: 10 RF: 0 gabapentin 400 mg capsule 400 mg PO BID Qty: 60 RF: 0
== END 2018-09-03 01:33 | disposition home or self-care (01) ==
PROVIDERS: Emergency Provider Emergency Medicine
DX: B37.9 Candidiasis, unspecified (principal)
CPT/HCPCS: 99282; 99283

== ENCOUNTER 2018-09-27 02:03 | Emergency (ER) | payer OTHER, MEDICAID, SELFPAY ==
[2018-09-27 02:10] VITALS: BP 120/90; PULSE 88; RESP 18; TEMP 36.7; O2SAT 96
[2018-09-27] MEDS: OLANZapine ODT 10 MG TAB PO (02:22)
--- NOTE | 2018-09-27 02:33 | ED_ITS ---
HPI - Psych General Chief Complaint: Psychiatric Symptoms Stated Complaint: schizophrenia Time Seen by Provider: 09/27/18 02:03 Source: patient Mode of arrival: ambulatory Limitations: no limitations History of Present Illness HPI Narrative: 38-year-old male nonsmoker with history of schizophrenia returns to the emergency department with a chief complaint of auditory hallucinations. He is well-known to this facility and frequently comes to see us when he is out of his medications. He states he has been out of them for about a week. He is currently between providers and has to get refills at emergency department. He denies any suicidal or homicidal ideations. He denies any use of alcohol or street drugs. He denies any other symptoms such as dizziness, weakness or lightheadedness. He denies any chest pain or shortness of breath. He is hoping to get in with [facility] sooner rather than later Onset (ago): day(s) Duration: constant History of same: Yes Relieving factors: none and medication Exacerbating factors: none Associated psychiatric symptoms: auditory hallucinations Treatments prior to arrival: none Related Data Previous Rx's Medication Instructions Recorded clotrimazole 1 applictn TOP TID #15 gram 08/03/18 clonazepam 1 mg PO BID PRN #20 tab 08/18/18 clotrimazole 1 applic TOPICAL TID #1 tube 08/18/18 gabapentin 400 mg PO BID #30 cap 08/27/18 quetiapine 50 mg PO TID PRN #30 tab 08/27/18 gabapentin 400 mg PO BID #60 cap 08/31/18 benztropine 1 mg PO BID #20 tab 09/27/18 fluoxetine 20 mg PO DAILY #10 tab 09/27/18 gabapentin 400 mg PO QID #10 cap 09/27/18 paliperidone 9 mg PO QAM #10 tab 09/27/18 quetiapine 50 mg PO TID #15 tab 09/27/18 Allergies Allergy/AdvReac Type Severity Reaction Status Date / Time No Known Drug Allergies Allergy Verified 08/28/18 22:52 Review of Systems Constitutional Denies chills, Denies fever(s), Denies lethargy and Denies weakness Eyes Denies change in vision, Denies eye discharge, Denies irritation and Denies loss of vision ENT Ears, Nose, Mouth, and Throat: Denies change in voice, Denies neck pain and Denies sore throat Cardiovascular Denies chest pain, Denies irregular heart rhythm, Denies lightheadedness, Denies palpitations, Denies dyspnea, Denies dyspnea on exertion and Denies orthopnea Respiratory Denies cough, Denies dyspnea, Denies dyspnea on exertion and Denies wheezing Gastrointestinal Gastrointestinal: Denies abdominal pain, Denies change in bowel habits, Denies diarrhea, Denies nausea and Denies vomiting Genitourinary Denies hematuria, Denies flank pain, Denies urinary incontinence and Denies urinary urgency Musculoskeletal Denies neck pain Integumentary/Breasts Denies pruritus, Denies erythema, Denies rash and Denies wounds Neurologic Denies confusion, Denies loss of vision and Denies weakness Psychiatric Denies anxiety, Denies confusion, Denies depression, Reports hallucinations, Denies homicidal ideation and Denies suicidal ideation Endocrine Denies palpitations Hematologic/Lymphatic Denies easy bruising Allergic/Immunologic Denies wheezing [facility] Medical History Fungal infection (Acute) Schizophrenia (Acute) Social History Smoking Status: Current some day smoker Social History Smoking Status: Current some day smoker Exam Narrative Exam Narrative: GENERAL: 38-year-old male, slightly disheveled appears his stated age, flat affect HEAD: Atraumatic. Normocephalic. No temporal or scalp tenderness. EYES: Pupils equal round and reactive. Extraocular motions intact. ENT: Nose without bleeding, purulent drainage or septal hematoma. NECK: Trachea midline. No JVD or lymphadenopathy. CARDIOVASCULAR: Regular rate and rhythm without murmurs, gallops, or rubs. RESPIRATORY: Clear to auscultation. GASTROINTESTINAL: Abdomen soft, non-tender, EXTREMITIES: No clubbing, cyanosis, or edema. BACK: Nontender NEURO: AOx3. SKIN: No rash or erythema. Initial Vital Signs Initial Vital Signs: Vital Signs Temperature 98.1 F 09/27/18 02:10 Pulse Rate 88 09/27/18 02:10 Respiratory Rate 18 09/27/18 02:10 Blood Pressure 120/90 09/27/18 02:10 Pulse Oximetry 96 09/27/18 02:10 Course Orders Ordered: Discontinued Medications Olanzapine (Zyprexa Zydis) 10 mg PO NOW ONE Stop: 09/27/18 02:19 Last Admin: 09/27/18 02:22 Dose: 10 mg Vital Signs - 8 hr 09/27/18 02:10 Temperature 98.1 F Pulse Rate 88 Respiratory Rate 18 Blood Pressure 120/90 Pulse Oximetry 96 Discharge Plan Departure Patient Disposition: Home Clinical Impression: Schizophrenia Qualifiers: Schizophrenia type: unspecified Qualified Code(s): F20.9 - Schizophrenia, unspecified Discharge Date/Time: 09/27/18 02:39 Instructions: DI for Schizophrenia Activity Restrictions/Additional Instructions: *You have been diagnosed with [acute on chronic schizophrenia with medical noncompliance] *What to do: *Take medications as directed *Follow up with your primary care provider in 2-3 days, call for an appointment. Let them know you were seen in the Emergency Department and that we ask that you be seen in follow up *Return to ER if you should have any new, worsening or concerning symptoms Prescriptions: Continued gabapentin 400 mg Capsule 400 mg PO QID Qty: 10 RF: 0 fluoxetine 20 mg Tablet 20 mg PO DAILY Qty: 10 RF: 0 benztropine 1 mg Tablet 1 mg PO BID Qty: 20 RF: 0 quetiapine 50 mg tablet 50 mg PO TID Qty: 15 RF: 0 paliperidone 9 mg Tablet Extended Release 24hr 9 mg PO QAM Qty: 10 RF: 0 No Action clotrimazole 1 % cream 1 applictn TOP TID Qty: 15 RF: 0 clonazepam 1 mg Tablet 1 mg PO BID PRN (Reason: Anxiety) Qty: 20 RF: 0 clotrimazole 1 % Cream 1 applic TOPICAL TID Qty: 1 RF: 0 gabapentin 400 mg capsule 400 mg PO BID Qty: 30 RF: 0 quetiapine 50 mg Tablet 50 mg PO TID PRN (Reason: Agitation) Qty: 30 RF: 0 gabapentin 400 mg capsule 400 mg PO BID Qty: 60 RF: 0 [facility]errals: [facility] [Outside] Boogie Andrade MD [Physician] -
[2018-09-27 02:39] VITALS: BP 123/71; PULSE 84; RESP 16; O2SAT 95
== END 2018-09-27 02:39 | disposition home or self-care (01) ==
PROVIDERS: Emergency Provider Emergency Medicine
DX: F20.9 Schizophrenia, unspecified (principal)
CPT/HCPCS: 99282; 99283

== ENCOUNTER 2018-09-29 21:17 | Emergency (ER) | payer OTHER, MEDICAID, SELFPAY ==
[2018-09-29 21:20] VITALS: BP 147/86; PULSE 85; RESP 16; TEMP 37.1; O2SAT 98; BMI 27.8
--- NOTE | 2018-09-29 21:25 | ED_ITS ---
HPI - General Adult <Mark Beard DO - Last Filed: 09/30/18 18:44> General Chief complaint: Psychiatric Symptoms Stated complaint: states intense voices in head, hallucenations Time Seen by Provider: 09/29/18 21:24 Source: patient Mode of arrival: ambulatory Limitations: no limitations History of Present Illness HPI narrative: Patient is a 38-year-old male. Known history of schizophrenia. Has been seen here in the emergency department multiple times the past for medication refills. I evaluated him in the past. He returns to the emergency department today stating that the voices that he is hearing are much more intrusive and frightening to him. He states that they are telling him that they are going to kill him. They talked about ?murder ?he does not specifically state whether not they are telling him to hurt others. He currently states he is not suicidal. He did not take his medications today. There is a question of whether not he has been taking them for the past couple days. He states the medications ?are not working ?. He denies any drugs or alcohol use. No trauma. Related Data Home Medications Medication Instructions Recorded Confirmed gabapentin 400 mg PO QID 09/30/18 09/30/18 Previous Rx's Medication Instructions Recorded clotrimazole 1 applictn TOP TID #15 gram 08/03/18 clonazepam 1 mg PO BID PRN #20 tab 08/18/18 benztropine 1 mg PO BID #20 tab 09/27/18 fluoxetine 20 mg PO DAILY #10 tab 09/27/18 paliperidone 9 mg PO QAM #10 tab 09/27/18 quetiapine 50 mg PO TID #15 tab 09/27/18 gabapentin 400 mg PO QID 10 Days #40 cap 09/30/18 ibuprofen 800 mg PO TID PRN #10 tab 09/30/18 Allergies Allergy/AdvReac Type Severity Reaction Status Date / Time No Known Drug Allergies Allergy Verified 08/28/18 22:52 Review of Systems <Mark Beard DO - Last Filed: 09/30/18 18:44> Constitutional Denies headache(s) ENT Ears, Nose, Mouth, and Throat: Denies headache(s) Cardiovascular Denies chest pain and Denies dyspnea Respiratory Denies dyspnea Gastrointestinal Gastrointestinal: Denies abdominal pain, Denies nausea and Denies vomiting Genitourinary Denies dysuria Musculoskeletal Denies myalgias and Denies arthralgias Integumentary/Breasts Denies rash Neurologic Reports behavioral changes and Denies headache(s) Psychiatric Reports anxiety, Reports behavioral changes, Reports auditory hallucinations, Denies homicidal ideation and Denies suicidal ideation Hematologic/Lymphatic Denies easy bleeding and Denies easy bruising PFSH <Mark Beard DO - Last Filed: 09/30/18 18:44> Medical History Fungal infection (Acute) Schizophrenia (Acute) Social History Smoking Status: Current some day smoker Exam <Mark Beard DO - Last Filed: 09/30/18 18:44> Initial Vital Signs Initial Vital Signs: Vital Signs Temperature 98.8 F 09/29/18 21:20 Pulse Rate 85 09/29/18 21:20 Respiratory Rate 16 09/29/18 21:20 Blood Pressure 147/86 H 09/29/18 21:20 Pulse Oximetry 98 09/29/18 21:20 Const General: cooperative, well developed, well groomed, acute distress and No in distress Orientation: alert, awake, oriented x3, oriented to person, oriented to place and not confused HENAR Head: normal to inspection and normocephalic Resp Effort & Inspection: normal respiratory effort Auscultation: clear to auscultation bilaterally Cardio Rate: regular rate Rhythm: regular rhythm Pulses: radial pulses present GI Inspection: non-distended Palpation: No firm Skin Lesions: no lesions Rashes: no rashes Neuro General: alert, awake and oriented x3 Cognition: normal cognition Speech: speech normal Motor: muscle tone normal throughout Sensory Exam: no sensory deficits noted Extrem General: normal to inspection and capillary refill normal Psych Appearance: grossly normal and well kempt Speech and Movement: not agitated, restless and slowed movement Affect: normal affect Attitude: cooperative and not belligerent Thought Process: normal Thought Content: hallucinations Judgment: limited <Katya Fields DO - Last Filed: 09/30/18 18:42> Initial Vital Signs Initial Vital Signs: Vital Signs Temperature 98.8 F 09/29/18 21:20 Pulse Rate 85 09/29/18 21:20 Respiratory Rate 16 09/29/18 21:20 Blood Pressure 147/86 H 09/29/18 21:20 Pulse Oximetry 98 09/29/18 21:20 Course <Mark Beard DO - Last Filed: 09/30/18 18:44> Orders Ordered: Discontinued Medications Gabapentin (Neurontin) 400 mg PO NOW ONE Stop: 09/30/18 12:59 Last Admin: 09/30/18 13:07 Dose: 400 mg Ibuprofen (Advil) 800 mg PO NOW ONE Stop: 09/30/18 12:43 Last Admin: 09/30/18 12:48 Dose: 800 mg Nicotine (Nicoderm) 21 mg TOP NOW ONE Stop: 09/30/18 12:43 Last Admin: 09/30/18 13:07 Dose: 21 mg Olanzapine (Zyprexa Zydis) 10 mg PO NOW ONE Stop: 09/30/18 12:59 Last Admin: 09/30/18 13:01 Dose: 10 mg Quetiapine Fumarate (Seroquel) 50 mg PO NOW ONE Stop: 09/30/18 12:43 Last Admin: 09/30/18 13:07 Dose: 50 mg Vital Signs - 8 hr 09/30/18 12:25 Temperature 98.4 F Pulse Rate 80 Respiratory Rate 18 Blood Pressure [Right Arm] 119/83 Pulse Oximetry 96 <Katya Fields DO - Last Filed: 09/30/18 18:42> Orders Ordered: Discontinued Medications Gabapentin (Neurontin) 400 mg PO NOW ONE Stop: 09/30/18 12:59 Last Admin: 09/30/18 13:07 Dose: 400 mg Ibuprofen (Advil) 800 mg PO NOW ONE Stop: 09/30/18 12:43 Last Admin: 09/30/18 12:48 Dose: 800 mg Nicotine (Nicoderm) 21 mg TOP NOW ONE Stop: 09/30/18 12:43 Last Admin: 09/30/18 13:07 Dose: 21 mg Olanzapine (Zyprexa Zydis) 10 mg PO NOW ONE Stop: 09/30/18 12:59 Last Admin: 09/30/18 13:01 Dose: 10 mg Quetiapine Fumarate (Seroquel) 50 mg PO NOW ONE Stop: 09/30/18 12:43 Last Admin: 09/30/18 13:07 Dose: 50 mg Vital Signs - 8 hr 09/30/18 12:25 Temperature 98.4 F Pulse Rate 80 Respiratory Rate 18 Blood Pressure [Right Arm] 119/83 Pulse Oximetry 96 Medical Decision Making <Mark Beard DO - Last Filed: 09/30/18 18:44> Lab Data Lab results reviewed: Yes I reviewed the patient's lab results. Result diagrams: 09/29/18 21:50 09/29/18 21:50 Lab Results 09/29/18 09/29/18 09/29/18 Range/Units 21:50 21:50 21:50 WBC 7.1 (4.5-11.0) X10^3/uL RBC 4.79 (4.5-5.9) X10^6/uL Hgb 15.3 (13.5-17.5) g/dL Hct 45.1 (41-53) % MCV 94.2 (80-100) fL MCH 32.0 (26-34) PG MCHC 34.0 (30-36) % RDW 13.6 (11.6-14.8) % Plt Count 181 (150-400) X10^3/uL Neut % (Auto) 72.9 (50-75) % Lymph % (Auto) 17.7 L (25-40) % [place] % (Auto) 7.5 (3-14) % Eos % (Auto) 1.2 L (2-4) % Baso % (Auto) 0.7 (0-2) % Neut # (Auto) 5200 (4448-0363) /uL Lymph # (Auto) 1300 (3050-8335) /uL [place] # (Auto) 500 (0-900) /uL Eos # (Auto) 100 (0-450) /uL Baso # (Auto) 0 (0-100) /uL Sodium 139 (137-145) mmol/L Potassium 3.9 (3.4-5.1) mmol/L Chloride 104 (98-107) mmol/L Carbon Dioxide 27 (22-32) mmol/L BUN 12 (9-20) mg/dL Creatinine 0.60 L (0.66-1.25) mg/dL Estimated GFR > 60.0 (>60) mL/min BUN/Creatinine Ratio 20.0 (6-22) Glucose 101 H (70-100) mg/dL Calcium 9.3 (8.4-10.2) mg/dL Total Bilirubin 0.4 (0.2-1.3) mg/dL AST 25 (17-59) IU/L ALT 27 (21-72) IU/L Alkaline Phosphatase 69 (38-126) U/L Total Protein 6.5 (6.3-8.2) g/dL Albumin 4.0 (3.5-5.0) g/dL Globulin 2.5 (1.7-4.1) g/dL Albumin/Globulin Ratio 1.6 (1.0-2.8) Lipase 42 (23-300) U/L TSH 2.06 (0.47-4.68) uIU/mL Salicylates < 1.0 (<20) mg/dL Urine Opiates Screen (Negative) Ur Oxycodone Screen (Negative) Urine Methadone Screen (Negative) Acetaminophen < 10 L (10-30) ug/mL Ur Barbiturates Screen (Negative) U Tricyclic Antidepress (Negative) Ur Phencyclidine Scrn (Negative) Ur Amphetamines Screen (Negative) U Methamphetamines Scrn (Negative) Ur MDMA Scrn (Ecstasy) (Negative) U Benzodiazepines Scrn (Negative) Urine Cocaine Screen (Negative) U Marijuana (THC) Screen (Negative) Ethyl Alcohol < 10 mg/dL 09/29/18 Range/Units 21:58 WBC (4.5-11.0) X10^3/uL RBC (4.5-5.9) X10^6/uL Hgb (13.5-17.5) g/dL Hct (41-53) % MCV (80-100) fL MCH (26-34) PG MCHC (30-36) % RDW (11.6-14.8) % Plt Count (150-400) X10^3/uL Neut % (Auto) (50-75) % Lymph % (Auto) (25-40) % [place] % (Auto) (3-14) % Eos % (Auto) (2-4) % Baso % (Auto) (0-2) % Neut # (Auto) (6757-2622) /uL Lymph # (Auto) (3320-0073) /uL [place] # (Auto) (0-900) /uL Eos # (Auto) (0-450) /uL Baso # (Auto) (0-100) /uL Sodium (137-145) mmol/L Potassium (3.4-5.1) mmol/L Chloride (98-107) mmol/L Carbon Dioxide (22-32) mmol/L BUN (9-20) mg/dL Creatinine (0.66-1.25) mg/dL Estimated GFR (>60) mL/min BUN/Creatinine Ratio (6-22) Glucose (70-100) mg/dL Calcium (8.4-10.2) mg/dL Total Bilirubin (0.2-1.3) mg/dL AST (17-59) IU/L ALT (21-72) IU/L Alkaline Phosphatase (38-126) U/L Total Protein (6.3-8.2) g/dL Albumin (3.5-5.0) g/dL Globulin (1.7-4.1) g/dL Albumin/Globulin Ratio (1.0-2.8) Lipase (23-300) U/L TSH (0.47-4.68) uIU/mL Salicylates (<20) mg/dL Urine Opiates Screen Negative (Negative) Ur Oxycodone Screen Negative (Negative) Urine Methadone Screen Negative (Negative) Acetaminophen (10-30) ug/mL Ur Barbiturates Screen Negative (Negative) U Tricyclic Antidepress Negative (Negative) Ur Phencyclidine Scrn Negative (Negative) Ur Amphetamines Screen Negative (Negative) U Methamphetamines Scrn Negative (Negative) Ur MDMA Scrn (Ecstasy) Negative (Negative) U Benzodiazepines Scrn Negative (Negative) Urine Cocaine Screen Negative (Negative) U Marijuana (THC) Screen Negative (Negative) Ethyl Alcohol mg/dL MDM Narrative Medical decision making narrative: Patient has been calm all evening. He has been sleeping all evening. He received no antipsychotic medications. He has been medically cleared. Attempts to find him voluntary placement last evening were unsuccessful. Social work consult placed. Care turned over to day provider to follow up and disposition. <Katya Fields, - Last Filed: 09/30/18 18:42> Lab Data Lab results reviewed: Yes I reviewed the patient's lab results. Lab Results 09/29/18 09/29/18 09/29/18 Range/Units 21:50 21:50 21:50 WBC 7.1 (4.5-11.0) X10^3/uL RBC 4.79 (4.5-5.9) X10^6/uL Hgb 15.3 (13.5-17.5) g/dL Hct 45.1 (41-53) % MCV 94.2 (80-100) fL MCH 32.0 (26-34) PG MCHC 34.0 (30-36) % RDW 13.6 (11.6-14.8) % Plt Count 181 (150-400) X10^3/uL Neut % (Auto) 72.9 (50-75) % Lymph % (Auto) 17.7 L (25-40) % [place] % (Auto) 7.5 (3-14) % Eos % (Auto) 1.2 L (2-4) % Baso % (Auto) 0.7 (0-2) % Neut # (Auto) 5200 (1742-7262) /uL Lymph # (Auto) 1300 (9534-8939) /uL [place] # (Auto) 500 (0-900) /uL Eos # (Auto) 100 (0-450) /uL Baso # (Auto) 0 (0-100) /uL Sodium 139 (137-145) mmol/L Potassium 3.9 (3.4-5.1) mmol/L Chloride 104 (98-107) mmol/L Carbon Dioxide 27 (22-32) mmol/L BUN 12 (9-20) mg/dL Creatinine 0.60 L (0.66-1.25) mg/dL Estimated GFR > 60.0 (>60) mL/min BUN/Creatinine Ratio 20.0 (6-22) Glucose 101 H (70-100) mg/dL Calcium 9.3 (8.4-10.2) mg/dL Total Bilirubin 0.4 (0.2-1.3) mg/dL AST 25 (17-59) IU/L ALT 27 (21-72) IU/L Alkaline Phosphatase 69 (38-126) U/L Total Protein 6.5 (6.3-8.2) g/dL Albumin 4.0 (3.5-5.0) g/dL Globulin 2.5 (1.7-4.1) g/dL Albumin/Globulin Ratio 1.6 (1.0-2.8) Lipase 42 (23-300) U/L TSH 2.06 (0.47-4.68) uIU/mL Salicylates < 1.0 (<20) mg/dL Urine Opiates Screen (Negative) Ur Oxycodone Screen (Negative) Urine Methadone Screen (Negative) Acetaminophen < 10 L (10-30) ug/mL Ur Barbiturates Screen (Negative) U Tricyclic Antidepress (Negative) Ur Phencyclidine Scrn (Negative) Ur Amphetamines Screen (Negative) U Methamphetamines Scrn (Negative) Ur MDMA Scrn (Ecstasy) (Negative) U Benzodiazepines Scrn (Negative) Urine Cocaine Screen (Negative) U Marijuana (THC) Screen (Negative) Ethyl Alcohol < 10 mg/dL 09/29/18 Range/Units 21:58 WBC (4.5-11.0) X10^3/uL RBC (4.5-5.9) X10^6/uL Hgb (13.5-17.5) g/dL Hct (41-53) % MCV (80-100) fL MCH (26-34) PG MCHC (30-36) % RDW (11.6-14.8) % Plt Count (150-400) X10^3/uL Neut % (Auto) (50-75) % Lymph % (Auto) (25-40) % [place] % (Auto) (3-14) % Eos % (Auto) (2-4) % Baso % (Auto) (0-2) % Neut # (Auto) (5009-3214) /uL Lymph # (Auto) (4417-6223) /uL [place] # (Auto) (0-900) /uL Eos # (Auto) (0-450) /uL Baso # (Auto) (0-100) /uL Sodium (137-145) mmol/L Potassium (3.4-5.1) mmol/L Chloride (98-107) mmol/L Carbon Dioxide (22-32) mmol/L BUN (9-20) mg/dL Creatinine (0.66-1.25) mg/dL Estimated GFR (>60) mL/min BUN/Creatinine Ratio (6-22) Glucose (70-100) mg/dL Calcium (8.4-10.2) mg/dL Total Bilirubin (0.2-1.3) mg/dL AST (17-59) IU/L ALT (21-72) IU/L Alkaline Phosphatase (38-126) U/L Total Protein (6.3-8.2) g/dL Albumin (3.5-5.0) g/dL Globulin (1.7-4.1) g/dL Albumin/Globulin Ratio (1.0-2.8) Lipase (23-300) U/L TSH (0.47-4.68) uIU/mL Salicylates (<20) mg/dL Urine Opiates Screen Negative (Negative) Ur Oxycodone Screen Negative (Negative) Urine Methadone Screen Negative (Negative) Acetaminophen (10-30) ug/mL Ur Barbiturates Screen Negative (Negative) U Tricyclic Antidepress Negative (Negative) Ur Phencyclidine Scrn Negative (Negative) Ur Amphetamines Screen Negative (Negative) U Methamphetamines Scrn Negative (Negative) Ur MDMA Scrn (Ecstasy) Negative (Negative) U Benzodiazepines Scrn Negative (Negative) Urine Cocaine Screen Negative (Negative) U Marijuana (THC) Screen Negative (Negative) Ethyl Alcohol mg/dL MDM Narrative Medical decision making narrative: Patient has been calm and sleeping on and off throughout the day. A bed was found at [facility]. Patient is willing to go at this time. He was requesting some ibuprofen is back was causing him some discomfort, we also discussed if he would like a nicotine patch which he was agreeable to. Patient had not had anything overnight for his schizophrenia and he has continued to have hallucinations. He was given 1 dose of Zyprexa here in the emergency department. Patient continues to be voluntary, he has been cooperative throughout his stay. Dr. Lam at [facility] is the accepting physician Patient later decided that he did not wish to be transfered and would like to be discharged. Patient continues to have hallucinations, he denies suicidal intent or ideation, no homicidal ideation, patient does not appear to gravely. Social work did come back down and speak with patient, he was agreeable with myself as well as executive secretary social welfare to possibly have a phone or follow-up appointment with the [facility] team. Patient requested gabepentin and ibuprofen refill, states he has his seroquel in his bag. Discharge Plan Departure Patient Disposition: Home Clinical Impression: Auditory hallucinations Schizophrenia Qualifiers: Schizophrenia type: unspecified Qualified Code(s): F20.9 - Schizophrenia, unspecified Discharge Date/Time: 09/30/18 13:41 Interventions: ED Discharge Assessment Last Done: 09/30/18 13:41 Activity Restrictions/Additional Instructions: Follow up with [facility], they can follow up via phone or in person and help with your medications and counseling. Continue medications as prescribed. You may return to the emergency department at any time for re-evaluation or assistance. Return to the emergency department for suicidal thoughts, homicidal thoughts, if you fee you are a danger to yourself or others, appear having worsening hallucinations or other new or concerning symptoms. If you feel you need to go to [facility]. Call had of time ([phone]) to inquire about an available bed. If there are no beds called daily and 9 AM and 9 PM to check on bed availability. If you're feeling suicidal or having suicidal thoughts, contact the suicide hotline: . Go directly to the crisis/detox center. Take the prescribed medications for your symptoms. Medications will be dispensed by the staff there. If you leave the Center you CANNOT take the extra medication home with you. Prescriptions: New gabapentin 400 mg capsule 400 mg PO QID 10 Days Qty: 40 RF: 0 ibuprofen 800 mg tablet 800 mg PO TID PRN (Reason: pain) Qty: 10 RF: 0 No Action clotrimazole 1 % cream 1 applictn TOP TID Qty: 15 RF: 0 clonazepam 1 mg Tablet 1 mg PO BID PRN (Reason: Anxiety) Qty: 20 RF: 0 gabapentin 400 mg capsule 400 mg PO QID RF: 0 fluoxetine 20 mg Tablet 20 mg PO DAILY Qty: 10 RF: 0 benztropine 1 mg Tablet 1 mg PO BID Qty: 20 RF: 0 quetiapine 50 mg tablet 50 mg PO TID Qty: 15 RF: 0 paliperidone 9 mg Tablet Extended Release 24hr 9 mg PO QAM Qty: 10 RF: 0
[2018-09-29 22:00] LABS: Add Manual Diff / Slide Review NO; Basophils Absolute Auto 0 /uL (0-100); Basophils Percent Auto 0.7 % (0-2); Eosinophils Absolute Auto 100 /uL (0-450); Eosinophils Percent Auto 1.2 % (2-4); Hematocrit 45.1 % (41-53); Hemoglobin 15.3 g/dL (13.5-17.5); Lymphocytes Absolute Auto 1300 /uL (1100-4500); Lymphocytes Percent Auto 17.7 % (25-40); Mean Corpuscular Volume 94.2 fL (80-100); Monocytes Absolute Auto 500 /uL (0-900); Monocytes Percent Auto 7.5 % (3-14); Neutrophils Absolute Auto 5200 /uL (1500-7000); Neutrophils Percent Auto 72.9 % (50-75); Platelet Count 181 X10^3/uL (150-400); Red Blood Cell Count 4.79 X10^6/uL (4.5-5.9); Red Cell Distribution Width 13.6 % (11.6-14.8); White Blood Cell Count 7.1 X10^3/uL (4.5-11.0)
[2018-09-29 22:10] LABS: Acetaminophen < 10 ug/mL (10-30); Alanine Aminotransferase 27 IU/L (21-72); Albumin Globulin Ratio 1.6 (1.0-2.8); Alkaline Phosphatase 69 U/L (38-126); Aspartate Aminotransferase 25 IU/L (17-59); Bilirubin Total 0.4 mg/dL (0.2-1.3); Blood Urea Nitrogen 12 mg/dL (9-20); Calcium 9.3 mg/dL (8.4-10.2); Carbon Dioxide 27 mmol/L (22-32); Chloride 104 mmol/L (98-107); Estimated Glomerular Filt Rate > 60.0 mL/min (>60); Ethanol (ETOH) < 10 mg/dL; Globulin 2.5 g/dL (1.7-4.1); Glucose 101 mg/dL (70-100); HEMOLYSIS < 15 (0-50); Lipase 42 U/L (23-300); Potassium 3.9 mmol/L (3.4-5.1); Salicylate < 1.0 mg/dL (<20); Sodium 139 mmol/L (137-145); Total Protein 6.5 g/dL (6.3-8.2)
[2018-09-29 22:15] LABS: Urine Amphetamines Negative (Negative); Urine Barbiturates Negative (Negative); Urine Benzodiazepines Negative (Negative); Urine Cocaine Negative (Negative); Urine MDMA Negative (Negative); Urine Methadone Negative (Negative); Urine Methamphetamines Negative (Negative); Urine Morphine/Opi cutoff 2000 Negative (Negative); Urine Oxycodone Negative (Negative); Urine Phencyclidine Negative (Negative); Urine Tetrahydrocannabinol Negative (Negative); Urine Tricyclic Antidepressant Negative (Negative)
[2018-09-29 22:40] LABS: Thyroid Stimulating Hormone 2.06 uIU/mL (0.47-4.68)
[2018-09-30 00:21] VITALS: BP 127/78; PULSE 82; RESP 16; TEMP 36.7; O2SAT 96
--- NOTE | 2018-09-30 04:48 | PC.NURSE ---
Pt is resting in bed with eyes closed, resps even/unlabored.
[2018-09-30 07:00] VITALS: BP 114/70; PULSE 77; RESP 16; TEMP 36.3; O2SAT 99
--- NOTE | 2018-09-30 11:59 | PC.NURSE ---
[facility] COPY[facility] trying to find placement for patient.
[2018-09-30 12:25] VITALS: BP 119/83; PULSE 80; RESP 18; TEMP 36.9; O2SAT 96
[2018-09-30] MEDS: IBUPROFEN 400 MG TABLET 800 MG PO (12:48)
--- NOTE | 2018-09-30 12:49 | PC.NURSE ---
Patient reports he takes Invega Injections, I informed Dr. Fields who states we do not have that available ehre so she will order him his seroquel. Patient reports he doesn't think he has beent aking the seroquel and it's been a long time since I've had the invega. Does dilan burnham have it? I need a tranquilizer. Patient given ibuprofen for back pain. He is up in hallway on phone making phone calls to different people telling them of paranoid suspicious activity. Patient report active auditory and visual hallucinations. He reports they are paranoid in nature and telling him to harm himself. No intention of acting on them and he denies suicidal ideation at this time.
[2018-09-30] MEDS: OLANZapine ODT 10 MG TAB PO (13:01)
--- NOTE | 2018-09-30 13:02 | PC.NURSE ---
Patient becoming increasingly agitated requesting to get my gabapentin and leave. He reports he is having hallucinations at this time and the [employer] is listening to us right now. Reports feeling very anxious. Agrees to receive olanzapine and stay to go to [facility]. I reassured him.
[2018-09-30] MEDS: NICOTINE 21 MG PATCH TOP (13:07)
[2018-09-30] MEDS: QUETIAPINE 25 MG TABLET 50 MG PO (13:07)
[2018-09-30] MEDS: GABAPENTIN 100 MG CAPSULE 400 MG PO (13:07)
--- NOTE | 2018-09-30 13:08 | PC.NURSE ---
Patient speaking on phone states someone was murdered by a [employer] assasin.
--- NOTE | 2018-09-30 13:25 | PC.NURSE ---
Pt states he feels improved and does not want to stay. Pt is currently voluntary. Dr. Fields evaluated and confirmed voluntary status and that patient was free to leave. Pt is open to [facility] check in later. Called [facility] ([phone]) and requested follow up.
--- NOTE | 2018-09-30 13:31 | PC.NURSE ---
[facility] team will call pt alyssa @ [phone]. Pt also has information to contact [facility] if needed sooner.
--- NOTE | 2018-09-30 14:53 | CM.SWNOTE ---
WEB MERCHANDISER Note: Received call from ED staff requesting [facility]B [facility]CH[facility]ER consult for voluntary mental health placement. Patient is a 38yr old male whom RN reports came to the Emergency Department with complaint of hearing voices. Per notes, patient with known h/o schizophrenia. NO PCP listed. Primary payor is 1)[facility]/[employer]. Per notes, patient requesting to go somewhere because his current medications are no longer working. Patient on several mental health medications, prescriber unknown. WEB MERCHANDISER placed call to [facility] to check on history. Patient last seen/enrolled by Megha in March 2017. Patient with multiple visits to [facility] ED within the last 6 months with similar requests/complaints. Currently patient appears homeless. WEB MERCHANDISER met with patient explained role. Patient laying on cot in room# 13 at time of visit. Patient alert and oriented and capable of answering questions appropriately. Patient appears disheveled with lack of hygiene. Patient confirms that he is homeless. Patient has back pack and rode his bicycle to the ED. Patient answers majority of questions with one word answers. Patient agreeable to get inpatient voluntary help for the voices patient denies any suicidal or homicidal ideation. Notified patient that [facility]CH[facility]ER would check on bed availability. Also notified patient that he would be a good candidate for medication management/adjustment. As of this AM patient agreeable. Placed call to [facility], spoke with Marcy. Asked JENNIFER/Belen to fax records. Placed return call to [facility] about 1.5hrs later. Marcy reports that they are reviewing and she will call WEB MERCHANDISER right back. Received return phone call from [facility] and they report that they can accept. Accepting MD is Dr. Lam. Marcy reports that she has already obtained authorization from [facility]. Number for nursing report given to WEB MERCHANDISER to pass on. Marcy requesting that patient be picked up by [facility] transport around 7:00pm. They are unable to accept sooner. After the above completed, received another call from ED indicating that patient has decided he no longer wants to go to inpatient treatment. Dr. Fields saw patient after he had made this decision. Dr. Fields confirms that patient is not suicidal and requested that WEB MERCHANDISER see him again prior to him leaving. WEB MERCHANDISER saw patient again in room#13. Patient reports that he is feeling better and does not want to go to [facility]. Patient continues to deny suicidal/homicidal ideation. Patient believes that since he has taken his medications while at [facility] he feels better. Spoke with Dr. Fields and it was agreed that patient could refuse inpatient mental health. Patient provided with [facility] brochure and encouraged to call or come back to the ED if he starts to hear voices telling him to kill himself again. Patient aware and agreeable. ED staff calling [facility] to let them know that bed no longer needed. Patient's tox screen was negative for any illegal substances. No marijuana or alcohol as well. FABIO Villanueva
== END 2018-09-30 13:41 | disposition home or self-care (01) ==
PROVIDERS: Emergency Medicine; Emergency Provider Emergency Medicine
DX: R44.0 Auditory hallucinations (principal)
CPT/HCPCS: 80053; 80305; 80320; 80329; 83690; 84443; 85025; 99283; 99285; G0480

== ENCOUNTER 2018-10-03 12:10 | Emergency (ER) | payer OTHER, MEDICAID, SELFPAY ==
[2018-10-03 12:38] VITALS: BP 117/77; PULSE 83; RESP 16; TEMP 36.8; O2SAT 96
--- NOTE | 2018-10-03 13:15 | ED_ITS ---
HPI - Recheck/Abnormal Lab/Rx <SOCRATES LopezBC - Last Filed: 10/03/18 13:40> General Chief Complaint: Recheck/Abnormal Lab/Rx Stated Complaint: ANXIETY Time Seen by Provider: 10/03/18 12:43 Source: patient Mode of arrival: ambulatory Limitations: no limitations History of Present Illness HPI narrative: The patient is a 38-year-old male current smoker with history of schizophrenia who presents with a chief complaint of wanting a gabapentin refill. He states he ran out 4 days ago takes it for his mood disorder and anxiety. He denies any suicidal thoughts or ideations. He states he just moved to the area, but is noted to be having received refills from this emergency department since early July. He has not established primary care in the area. He states he is having auditory hallucinations, but they are not command and instructing him to do anything dangerous. He was evaluated in this facility for paranoid schizophrenia a few days ago, but apparently cleared and left the department prior to transfer to [facility], where a bed was obtained. He denies any physical complaints including fevers nausea vomiting or diarrhea. Denies any chest pain or shortness of breath. Related Data Previous Rx's Medication Instructions Recorded clotrimazole 1 applictn TOP TID #15 gram 08/03/18 clonazepam 1 mg PO BID PRN #20 tab 08/18/18 benztropine 1 mg PO BID #20 tab 09/27/18 fluoxetine 20 mg PO DAILY #10 tab 09/27/18 paliperidone 9 mg PO QAM #10 tab 09/27/18 quetiapine 50 mg PO TID #15 tab 09/27/18 gabapentin 400 mg PO QID 10 Days #40 cap 09/30/18 ibuprofen 800 mg PO TID PRN #10 tab 09/30/18 gabapentin 400 mg PO QID 10 Days #40 cap 10/03/18 Allergies Allergy/AdvReac Type Severity Reaction Status Date / Time No Known Drug Allergies Allergy Verified 08/28/18 22:52 Review of Systems <TRISTAN Lopez - Last Filed: 10/03/18 13:40> Review of Systems GENERAL: Denies chills, fatigue, malaise, fever, sweats. HEENT: Denies sinus pain, ear pain, sore throat, difficulty swallowing, dizziness. RESPIRATORY: Denies dyspnea, cough, wheezing, hemoptysis, sputum. CARDIOVASCULAR: Denies chest pain, palpitations, orthopnea, edema, GASTROINTESTINAL: Denies nausea, vomiting, abdominal pain, diarrhea, constipation, melena. : Denies dysuria, frequency, incontinence, hematuria, urinary retention. MUSCULOSKELETAL: denies weakness, joint pain, or bony pain SKIN: Denies rash, skin lesions, or other NEUROLOGIC: Denies weakness, headache, numbness, change in speech, confusion, seizures, incoordination. PSYCHIATRIC: See HPI 12 point review of systems is negative except for those stated above PFSH <TRISTAN Lopez - Last Filed: 10/03/18 13:40> Medical History Fungal infection (Acute) Schizophrenia (Acute) Social History Smoking Status: Current some day smoker Social History Smoking Status: Current some day smoker Exam <TRISTAN Lopez - Last Filed: 10/03/18 13:40> Narrative Exam Narrative: GENERAL: This is a well-nourished, well-developed patient, in no acute distress HEAD: Atraumatic. Normocephalic. No temporal or scalp tenderness. EYES: Pupils equal round and reactive. Extraocular motions intact. No scleral icterus. No injection or drainage. ENT: Nose without bleeding, purulent drainage or septal hematoma. Throat without erythema, tonsillar hypertrophy or exudate. Uvula midline. Airway patent. NECK: Trachea midline. No JVD or lymphadenopathy. Supple, nontender, no meningeal signs. CARDIOVASCULAR: Regular rate and rhythm RESPIRATORY: Clear to auscultation. Breath sounds equal bilaterally. No wheezes, rales, or rhonchi. No cough. No increased respiratory effort. No accessory muscle use. GASTROINTESTINAL: Abdomen soft, non-tender, nondistended. No hepato- splenomegaly, or palpable masses. No guarding. EXTREMITIES: No clubbing, cyanosis, or edema. No joint tenderness, effusion, or edema noted. BACK: Nontender without deformity or crepitance. No flank tenderness. NEURO: AOx3. Interactive. Psych: Not responding to obvious internal stimuli, denies SI or HI Initial Vital Signs Initial Vital Signs: Vital Signs Temperature 98.3 F 10/03/18 12:38 Pulse Rate 83 10/03/18 12:38 Respiratory Rate 16 10/03/18 12:38 Blood Pressure 117/77 10/03/18 12:38 Pulse Oximetry 96 10/03/18 12:38 <Rosemarie Magana MD - Last Filed: 10/03/18 19:56> Initial Vital Signs Initial Vital Signs: Vital Signs Temperature 98.3 F 10/03/18 12:38 Pulse Rate 83 10/03/18 12:38 Respiratory Rate 16 10/03/18 12:38 Blood Pressure 117/77 10/03/18 12:38 Pulse Oximetry 96 10/03/18 12:38 Course <TRISTAN Lopez - Last Filed: 10/03/18 13:40> Vital Signs - 8 hr 10/03/18 12:38 10/03/18 13:45 Temperature 98.3 F Pulse Rate 83 73 Respiratory Rate 16 Blood Pressure 117/77 130/88 Pulse Oximetry 96 97 <Rosemarie Magana MD - Last Filed: 10/03/18 19:56> Vital Signs - 8 hr 10/03/18 12:38 10/03/18 13:45 Temperature 98.3 F Pulse Rate 83 73 Respiratory Rate 16 Blood Pressure 117/77 130/88 Pulse Oximetry 96 97 MDM - Recheck/Abnormal Lab/Rx <TRISTAN Lopez - Last Filed: 10/03/18 13:40> MDM Narrative Medical decision making narrative: The patient is a 38-year-old male who presents with the chief complaint requesting a refill of his gabapentin. Chart review a straight that he has been receiving refills from the emergency department without locating a primary care provider or transition social worker. I offered to have him speak with a transition social worker in order to help identify resources. The patient declined this and stated he did not want wait for it. He currently denies any SI or HI. He is GCS 15 and able to make his own decisions at this point time. However I did give the patient contact information for the [facility] human resources benefits manager as well as the crisis line. I encouraged the patient to find a primary care provider and stop obtaining refills in order to improve his care. Patient states understanding and has no questions or conc erns upon discharge. He states he will come back to the ER for any acute concerns such as desired hurt himself or anybody else. Discharge Plan Departure Patient Disposition: Home Clinical Impression: Encounter for medication refill Discharge Date/Time: 10/03/18 13:46 Interventions: ED Discharge Assessment Last Done: 10/03/18 13:45 Instructions: DI for Safely Taking and Storing Medications -- Adults Activity Restrictions/Additional Instructions: I have given you a refill of her gabapentin. We have also given the contact information for the crisis line and health human resources benefits manager. It is imperative that you obtain primary care, so that you can obtain adequate care. The emergency department is not appropriate place for medication refills. Please come back to the emergency department for any acute concerns such as wanting to hurt herself or anybody else. Prescriptions: New gabapentin 400 mg capsule 400 mg PO QID 10 Days Qty: 40 RF: 0 No Action clotrimazole 1 % cream 1 applictn TOP TID Qty: 15 RF: 0 clonazepam 1 mg Tablet 1 mg PO BID PRN (Reason: Anxiety) Qty: 20 RF: 0 gabapentin 400 mg capsule 400 mg PO QID 10 Days Qty: 40 RF: 0 ibuprofen 800 mg tablet 800 mg PO TID PRN (Reason: pain) Qty: 10 RF: 0 fluoxetine 20 mg Tablet 20 mg PO DAILY Qty: 10 RF: 0 benztropine 1 mg Tablet 1 mg PO BID Qty: 20 RF: 0 quetiapine 50 mg tablet 50 mg PO TID Qty: 15 RF: 0 paliperidone 9 mg Tablet Extended Release 24hr 9 mg PO QAM Qty: 10 RF: 0
[2018-10-03 13:45] VITALS: BP 130/88; PULSE 73; O2SAT 97
== END 2018-10-03 13:46 | disposition home or self-care (01) ==
PROVIDERS: Emergency Provider Nurse Practitioner Family
DX: F41.9 Anxiety disorder, unspecified (principal); Z76.0 Encounter for issue of repeat prescription
CPT/HCPCS: 99282; 99283

== ENCOUNTER 2018-10-03 22:02 | Emergency (ER) | payer OTHER, MEDICAID, SELFPAY ==
[2018-10-03 22:06] VITALS: BP 154/83; PULSE 92; RESP 14; TEMP 36.4; O2SAT 97; BMI 27.0
--- NOTE | 2018-10-03 22:46 | PC.NURSE ---
attempt to assess pt. Pt is asleep. Attempt to talk with pt and he remains asleep. Respirations even and unlabored. Pt appears in no acute distress.
[2018-10-03 23:14] VITALS: BP 117/72; PULSE 76; O2SAT 93
--- NOTE | 2018-10-04 00:12 | PC.NURSE ---
He had not taken his meds today,per DR Bear orders he took his paliperidone 9mg er and his gabapentin 400 mg po.
[2018-10-04 01:12] VITALS: BP 121/74; PULSE 72; RESP 16; O2SAT 98
[2018-10-04 02:24] VITALS: BP 112/62; PULSE 56; O2SAT 97
--- NOTE | 2018-10-04 06:07 | ED_ITS ---
HPI - Psych General Chief Complaint: Psychiatric Symptoms Stated Complaint: hallucenations Time Seen by Provider: 10/03/18 22:17 Source: patient Mode of arrival: ambulatory Limitations: no limitations History of Present Illness HPI Narrative: 38-year-old male with history of schizophrenia and frequent medical noncompliance returns again stating he has mild auditory hallucinations. He denies any desire to hurt self or others. He states that he has had trouble accessing his medications but 1 was searched through his bag we are able to find them. He is happy to take his own medication. He denies the use of alcohol or street drugs Duration: intermittent History of same: Yes Relieving factors: medication Context: not taking psychiatric medications Associated psychiatric symptoms: auditory hallucinations Associated symptoms: denies other symptoms Treatments prior to arrival: none Related Data Previous Rx's Medication Instructions Recorded clotrimazole 1 applictn TOP TID #15 gram 08/03/18 clonazepam 1 mg PO BID PRN #20 tab 08/18/18 benztropine 1 mg PO BID #20 tab 09/27/18 fluoxetine 20 mg PO DAILY #10 tab 09/27/18 paliperidone 9 mg PO QAM #10 tab 09/27/18 quetiapine 50 mg PO TID #15 tab 09/27/18 gabapentin 400 mg PO QID 10 Days #40 cap 09/30/18 ibuprofen 800 mg PO TID PRN #10 tab 09/30/18 gabapentin 400 mg PO QID 10 Days #40 cap 10/03/18 Allergies Allergy/AdvReac Type Severity Reaction Status Date / Time No Known Drug Allergies Allergy Verified 10/03/18 22:06 Review of Systems Constitutional Denies chills, Denies fever(s), Denies lethargy and Denies weakness Eyes Denies change in vision, Denies eye discharge, Denies irritation and Denies loss of vision ENT Ears, Nose, Mouth, and Throat: Denies change in voice, Denies neck pain and Denies sore throat Cardiovascular Denies chest pain, Denies irregular heart rhythm, Denies lightheadedness, Denies palpitations, Denies dyspnea, Denies dyspnea on exertion and Denies orthopnea Respiratory Denies cough, Denies dyspnea, Denies dyspnea on exertion and Denies wheezing Gastrointestinal Gastrointestinal: Denies abdominal pain, Denies change in bowel habits, Denies diarrhea, Denies nausea and Denies vomiting Genitourinary Denies hematuria, Denies flank pain, Denies urinary incontinence and Denies urinary urgency Musculoskeletal Denies neck pain Integumentary/Breasts Denies pruritus, Denies erythema, Denies rash and Denies wounds Neurologic Denies confusion, Denies loss of vision and Denies weakness Psychiatric Denies anxiety, Denies confusion, Denies depression, Reports auditory hallucinations, Denies homicidal ideation and Denies suicidal ideation Endocrine Denies palpitations Hematologic/Lymphatic Denies easy bruising Allergic/Immunologic Denies wheezing PFSH Medical History Fungal infection (Acute) Schizophrenia (Acute) Social History Smoking Status: Current every day smoker Social History Smoking Status: Current every day smoker Exam Narrative Exam Narrative: GEN: AOx3 and in mild distress, a flat affect and at his baseline EYES: Pupils are equal, round, and reactive to light and accommodation. Ext raoccular muscles are intact bilaterally. There is no subconjunctival hemorrhage or exudate. CHEST: Lungs are clear to auscultation bilaterally and free of wheezes, rales, or rhonchi. Heart rate is regular rhythm, there are no murmurs, clicks, rubs, or gallops. There is no chest wall tenderness. ABD: Abdomen is soft and nontender. There is no guarding or rebound. Bowel sounds are normal in all 4 quadrants. There is no mass or organomegaly. EXT: Full painless ROM of all extremities with no loss of sensation or strength. SKIN: Warm, pink, and dry. No erythema or rash Initial Vital Signs Initial Vital Signs: Vital Signs Temperature 97.6 F 10/03/18 22:06 Pulse Rate 92 H 10/03/18 22:06 Respiratory Rate 14 10/03/18 22:06 Blood Pressure 154/83 H 10/03/18 22:06 Pulse Oximetry 97 10/03/18 22:06 Course Vital Signs - 8 hr 10/03/18 22:06 10/03/18 23:14 10/04/18 01:12 Temperature 97.6 F Pulse Rate 92 H 76 72 Respiratory Rate 14 16 Blood Pressure 154/83 H Blood Pressure [Left Arm] 117/72 121/74 Pulse Oximetry 97 93 98 10/04/18 02:24 Temperature Pulse Rate 56 L Respiratory Rate Blood Pressure 112/62 Blood Pressure [Left Arm] Pulse Oximetry 97 MDM - Psych MDM Narrative Medical decision making narrative: Patient returns with auditory hallucinations after not taking his antipsychotic. We were able to find his bottle in his backpack any took his medications, rested a while and hallucinations went away. He was happy to leave and understands how important is to take his medications. He understands that he can return immediately for any worsening symptoms or any development of suicidal or homicidal ideation Discharge Plan Departure Patient Disposition: Home Clinical Impression: Auditory hallucinations, Chronic schizophrenia Discharge Date/Time: 10/04/18 02:25 Interventions: ED Discharge Assessment Last Done: 10/04/18 02:24 Instructions: DI for Schizophrenia Activity Restrictions/Additional Instructions: *You have been diagnosed with [auditory hallucinations due to medical noncompliance with the or schizophrenia] *What to do: *Take medications as directed *Follow up with your primary care provider in 2-3 days, call for an appointment. Let them know you were seen in the Emergency Department and that we ask that you be seen in follow up *Return to ER if you should have any new, worsening or concerning symptoms Prescriptions: No Action clotrimazole 1 % cream 1 applictn TOP TID Qty: 15 RF: 0 clonazepam 1 mg Tablet 1 mg PO BID PRN (Reason: Anxiety) Qty: 20 RF: 0 gabapentin 400 mg capsule 400 mg PO QID 10 Days Qty: 40 RF: 0 ibuprofen 800 mg tablet 800 mg PO TID PRN (Reason: pain) Qty: 10 RF: 0 fluoxetine 20 mg Tablet 20 mg PO DAILY Qty: 10 RF: 0 benztropine 1 mg Tablet 1 mg PO BID Qty: 20 RF: 0 quetiapine 50 mg tablet 50 mg PO TID Qty: 15 RF: 0 paliperidone 9 mg Tablet Extended Release 24hr 9 mg PO QAM Qty: 10 RF: 0 gabapentin 400 mg capsule 400 mg PO QID 10 Days Qty: 40 RF: 0
== END 2018-10-04 02:25 | disposition home or self-care (01) ==
PROVIDERS: Emergency Provider Emergency Medicine
DX: R44.0 Auditory hallucinations (principal); F20.9 Schizophrenia, unspecified; F41.9 Anxiety disorder, unspecified; Z76.0 Encounter for issue of repeat prescription
CPT/HCPCS: 99282; 99283

== ENCOUNTER 2018-10-04 23:30 | Emergency (ER) | payer OTHER, MEDICAID, SELFPAY ==
[2018-10-04 23:35] VITALS: BP 137/74; PULSE 100; RESP 18; TEMP 37.1; O2SAT 95; BMI 27.4
[2018-10-05] MEDS: OLANZapine ODT 10 MG TAB PO (00:03)
[2018-10-05 00:26] VITALS: BP 132/77; PULSE 98; RESP 14; TEMP 36.3; O2SAT 95
--- NOTE | 2018-10-05 01:51 | ED.PSYCH ---
HPI - Psych General Chief Complaint: Psychiatric Symptoms Stated Complaint: Anxiety, voices Time Seen by Provider: 10/04/18 23:33 Source: patient Mode of arrival: ambulatory Limitations: no limitations History of Present Illness HPI Narrative: 38-year-old male daily smoker with history medical noncompliance and auditory hallucinations secondary to schizophrenia returns to the emergency department stating he is having a recurrence of his auditory hallucinations. He is seen frequently in becoming known well to myself and other providers and nursing staff. He denies any suicidal or homicidal ideation. He has his medications but often forgets to take them. He does not have an ongoing relationship with a mental health provider which may be part of why he has frequenting the Emergency Department. He denies other symptoms MD complaint: other Onset (ago): hour(s) Duration: intermittent History of same: Yes Relieving factors: medication Exacerbating factors: other Context: not taking psychiatric medications Associated psychiatric symptoms: auditory hallucinations Associated symptoms: denies other symptoms Treatments prior to arrival: none Related Data Previous Rx's Medication Instructions Recorded clotrimazole 1 applictn TOP TID #15 gram 08/03/18 clonazepam 1 mg PO BID PRN #20 tab 08/18/18 benztropine 1 mg PO BID #20 tab 09/27/18 fluoxetine 20 mg PO DAILY #10 tab 09/27/18 paliperidone 9 mg PO QAM #10 tab 09/27/18 quetiapine 50 mg PO TID #15 tab 09/27/18 gabapentin 400 mg PO QID 10 Days #40 cap 09/30/18 ibuprofen 800 mg PO TID PRN #10 tab 09/30/18 gabapentin 400 mg PO QID 10 Days #40 cap 10/03/18 Allergies Allergy/AdvReac Type Severity Reaction Status Date / Time No Known Drug Allergies Allergy Verified 10/03/18 22:06 [facility] Medical History Fungal infection (Acute) Schizophrenia (Acute) Social History Smoking Status: Current every day smoker Social History Smoking Status: Current every day smoker Exam Narrative Exam Narrative: GEN: AOx3 and in mild distress, he actually looks very well. More alert than normal with good eye contact. Still has a bit of a flat affect EYES: Pupils are equal, round, and reactive to light and accommodation. Extraoccular muscles are intact bilaterally. There is no subconjunctival hemorrhage or exudate. CHEST: Lungs are clear to auscultation bilaterally and free of wheezes, rales, or rhonchi. Heart rate is regular rhythm, there are no murmurs, clicks, rubs, or gallops. There is no chest wall tenderness. ABD: Abdomen is soft and nontender. There is no guarding or rebound. Bowel sounds are normal in all 4 quadrants. There is no mass or organomegaly. EXT: Full painless ROM of all extremities with no loss of sensation or strength. SKIN: Warm, pink, and dry. No erythema or rash Initial Vital Signs Initial Vital Signs: Vital Signs Temperature 98.8 F 10/04/18 23:35 Pulse Rate 100 H 10/04/18 23:35 Respiratory Rate 18 10/04/18 23:35 Blood Pressure 137/74 10/04/18 23:35 Pulse Oximetry 95 10/04/18 23:35 Course Course Narrative: extensive discussion with patient about need for ongoing mental health care. He expressed an understanding. He asks for juice and a blanket. Orders Ordered: Discontinued Medications Olanzapine (Zyprexa Zydis) 10 mg PO NOW ONE Stop: 10/04/18 23:57 Last Admin: 10/05/18 00:03 Dose: 10 mg Vital Signs - 8 hr 10/04/18 23:35 10/05/18 00:26 Temperature 98.8 F 97.3 F L Pulse Rate 100 H 98 H Respiratory Rate 18 14 Blood Pressure 137/74 132/77 Pulse Oximetry 95 95 Discharge Plan Departure Patient Disposition: Home Clinical Impression: Auditory hallucinations Schizophrenia Qualifiers: Schizophrenia type: unspecified Qualified Code(s): F20.9 - Schizophrenia, unspecified Discharge Date/Time: 10/05/18 00:28 Interventions: ED Discharge Assessment Last Done: 10/05/18 00:26 Instructions: DI for Schizophrenia Activity Restrictions/Additional Instructions: *You have been diagnosed with [auditory hallucinations due to medical noncompliance for schizophrenia] *What to do: *Take medications as directed *Follow up with your primary care provider in 2-3 days, call for an appointment. Let them know you were seen in the Emergency Department and that we ask that you be seen in follow up *Return to ER if you should have any new, worsening or concerning symptoms Prescriptions: No Action clotrimazole 1 % cream 1 applictn TOP TID Qty: 15 RF: 0 clonazepam 1 mg Tablet 1 mg PO BID PRN (Reason: Anxiety) Qty: 20 RF: 0 gabapentin 400 mg capsule 400 mg PO QID 10 Days Qty: 40 RF: 0 ibuprofen 800 mg tablet 800 mg PO TID PRN (Reason: pain) Qty: 10 RF: 0 fluoxetine 20 mg Tablet 20 mg PO DAILY Qty: 10 RF: 0 benztropine 1 mg Tablet 1 mg PO BID Qty: 20 RF: 0 quetiapine 50 mg tablet 50 mg PO TID Qty: 15 RF: 0 paliperidone 9 mg Tablet Extended Release 24hr 9 mg PO QAM Qty: 10 RF: 0 gabapentin 400 mg capsule 400 mg PO QID 10 Days Qty: 40 RF: 0 Referrals: [facility]Outside]
== END 2018-10-05 00:28 | disposition home or self-care (01) ==
PROVIDERS: Emergency Provider Emergency Medicine
DX: F20.9 Schizophrenia, unspecified (principal)
CPT/HCPCS: 99282; 99283

== ENCOUNTER 2018-10-06 01:29 | Emergency (ER) | payer OTHER, MEDICAID, SELFPAY ==
[2018-10-06 01:30] VITALS: BP 116/70; PULSE 67; RESP 18; TEMP 36.6; O2SAT 97; BMI 27.4
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
== END 2018-10-06 01:45 | disposition home or self-care (01) ==
PROVIDERS: Emergency Provider Emergency Medicine
DX: S80.211A Abrasion, right knee, initial encounter (principal); V18.0XXA Pedal cycle driver injured in noncollision transport accident in nontraffic accident, initial encounter; Y93.55 Activity, bike riding
CPT/HCPCS: 99282; 99283

== ENCOUNTER 2019-01-14 21:41 | Emergency (ER) | payer OTHER, MEDICAID, SELFPAY ==
[2019-01-14 21:56] VITALS: BP 137/80; PULSE 104; RESP 15; TEMP 36.8; O2SAT 98; BMI 27.0
--- NOTE | 2019-01-14 23:00 | ED_ITS ---
HPI - Male Genitourinary General Chief complaint: Urogenital-Male Stated complaint: states needs antibiotics Time Seen by Provider: 01/14/19 22:59 Source: patient Mode of arrival: Ambulatory Limitations: no limitations History of Present Illness HPI Narrative: This is a 38-year-old male who comes to the emergency department states he needs antibiotics. Would question more specifically he states that he has a rash or something on his scrotum. He states that it is not coming off. He states that the testicles are not really painful but the outside is uncomfortable. Patient has not had fevers. He denies abdominal pain. He denies any other symptoms at this time. Patient does have a history of schizophrenia when asked if he feels that his symptoms are controlled at this time he does express this. He denies any other issues currently. Related Data Previous Rx's Medication Instructions Recorded clotrimazole 1 applictn TOP TID #15 gram 08/03/18 clonazepam 1 mg PO BID PRN #20 tab 08/18/18 benztropine 1 mg PO BID #20 tab 09/27/18 fluoxetine 20 mg PO DAILY #10 tab 09/27/18 paliperidone 9 mg PO QAM #10 tab 09/27/18 quetiapine 50 mg PO TID #15 tab 09/27/18 ibuprofen 800 mg PO TID PRN #10 tab 09/30/18 Allergies Allergy/AdvReac Type Severity Reaction Status Date / Time No Known Drug Allergies Allergy Verified 01/14/19 21:56 Patient History Medical History Fungal infection (Acute) Schizophrenia (Acute) Social History Smoking Status: Current every day smoker alcohol intake frequency: holidays/special occasions only Substance Use Type: does not use Exam Narrative Exam Narrative: GENERAL: Alert and oriented x three, well-nourished male, mild distress. HEENT: Head normocephalic, atraumatic, EOMI, pupils reactive, face symmetric, moist mucous membranes NECK: Supple, full range of motion CARDIOVASCULAR: Regular rate and rhythm without murmurs, rubs or gallops. RESPIRATORY: Breath sounds equal bilaterally, no wheezes rales or rhonchi. ABDOMEN: Soft, nontender. Normoactive bowel sounds all 4 quadrants. No guarding or rebound, rigidity, no mass : No CVA tenderness. male politely refused physical evaluation. EXTREMITIES: Normal range of motion, no clubbing or edema. Neurovascularly intact NEUROLOGICAL: Cranial nerves II through XII grossly intact. Moving all extremities SKIN: Warm, dry, no petechiae, no rashes or lesions. PSYCH: Denies any current issues. Initial Vital Signs Initial Vital Signs: Vital Signs Temperature 98.3 F 01/14/19 21:56 Pulse Rate 104 H 01/14/19 21:56 Respiratory Rate 15 01/14/19 21:56 Blood Pressure 137/80 01/14/19 21:56 Pulse Oximetry 98 01/14/19 21:56 Course Vital Signs Vital signs: Vital Signs - 8 hr 01/14/19 21:56 Temperature 98.3 F Pulse Rate 104 H Respiratory Rate 15 Blood Pressure 137/80 Pulse Oximetry 98 MDM - Male Genitourinary Lab Data Labs: Urine Dip Bedside Urine Glucose Negative Bedside Urine Bilirubin - Negative Bedside Urine Ketone +/- 5 Urine Specific [place] 1.025 Bedside Urine Occult Blood - Negative Bedside Urine pH 6.0 Bedside Urine Protein +/- 15 Bedside Urine Urobilinogen - Negative Bedside Urine Nitrite - Negative Bedside Urine Leukocytes - Negative Esterase MDM Narrative Medical decision making narrative: 38-year-old male comes to the emergency dep artment patient answers questions but is uncomfortable with me doing the physical examination because I am a female we do not have any male providers here in the department at this time more male nurses to be present for evaluation. Patient states that there is a rash, this could potentially be fungal versus infectious or other cause so I did not feel comfortable writing a prescription or giving him medication without visualizing the area. We did discuss that there is supposed to be a male provider in the morning and that he could return for evaluation then if he would be willing. Patient does have some psychiatric history he denies any other complaints with this, he does seem capable of making decisions at this time and had seems to have capacity to care from his self appropriately. Patient did allow for physical exam otherwise but felt uncomfortable with me seeing the genital area. Discharge Plan Departure Patient Disposition: Home Clinical Impression: Rash on scrotum Discharge Date/Time: 01/14/19 23:16 Activity Restrictions/Additional Instructions: You may return after 7am for evaluation by a male physician. There is no guarantee that there will be a male physician on other dates. You may return at any time for recheck today by myself. Return immediately for fevers, rapidly worsening symptoms, passing out, abdominal pain, inability urinate or other new concerning symptoms Prescriptions: No Action clotrimazole 1 % cream 1 applictn TOP TID Qty: 15 RF: 0 clonazepam 1 mg Tablet 1 mg PO BID PRN (Reason: Anxiety) Qty: 20 RF: 0 ibuprofen 800 mg tablet 800 mg PO TID PRN (Reason: pain) Qty: 10 RF: 0 fluoxetine 20 mg Tablet 20 mg PO DAILY Qty: 10 RF: 0 benztropine 1 mg Tablet 1 mg PO BID Qty: 20 RF: 0 quetiapine 50 mg tablet 50 mg PO TID Qty: 15 RF: 0 paliperidone 9 mg Tablet Extended Release 24hr 9 mg PO QAM Qty: 10 RF: 0
--- NOTE | 2019-01-14 23:13 | PC.NURSE ---
Refuses physical assessment.
== END 2019-01-14 23:16 | disposition home or self-care (01) ==
PROVIDERS: Emergency Provider Emergency Medicine
DX: R21 Rash and other nonspecific skin eruption (principal)
CPT/HCPCS: 81003; 99282; 99283

== ENCOUNTER 2019-04-20 00:37 | Emergency (ER) | payer OTHER, MEDICAID, SELFPAY ==
--- NOTE | 2019-04-20 00:44 | ED.GENADULT ---
HPI - General Adult General Stated complaint: needs a bandaid Time Seen by Provider: 04/20/19 00:42 Source: patient Mode of arrival: Ambulatory Limitations: no limitations History of Present Illness HPI narrative: 38-year-old male here because he states he needs some antibiotic ointment and a Band-Aid for a small cut on his left thumb. Related Data Previous Rx's Medication Instructions Recorded clotrimazole 1 applictn TOP TID #15 gram 08/03/18 clonazepam 1 mg PO BID PRN #20 tab 08/18/18 benztropine 1 mg PO BID #20 tab 09/27/18 fluoxetine 20 mg PO DAILY #10 tab 09/27/18 paliperidone 9 mg PO QAM #10 tab 09/27/18 quetiapine 50 mg PO TID #15 tab 09/27/18 ibuprofen 800 mg PO TID PRN #10 tab 09/30/18 Allergies Allergy/AdvReac Type Severity Reaction Status Date / Time No Known Drug Allergies Allergy Verified 01/14/19 21:56 Review of Systems Musculoskeletal Musculoskeletal: Denies tingling Integumentary/Breasts Comments: Small cut on left thumb. Neurologic Neurologic: Denies tingling Hematologic/Lymphatic Hematologic/Lymphatic: Denies easy bleeding and Denies easy bruising Patient History Medical History Fungal infection (Acute) Schizophrenia (Acute) Social History Smoking Status: Current every day smoker Smoking Status: Current every day smoker alcohol intake frequency: holidays/special occasions only Substance Use Type: does not use Exam Resp Effort & Inspection: normal respiratory effort Skin Other: Patient with a very small superficial abrasion to the back of the left thumb Neuro General: alert and awake Course Orders Ordered: Discontinued Medications Bacitracin (Bacitracin) 1 applic TOP NOW ONE Stop: 04/20/19 00:43 Medical Decision Making MDM Narrative Medical decision making narrative: Patient was given and a bandage Discharge Plan Departure Patient Disposition: Home Clinical Impression: Abrasion of skin Activity Restrictions/Additional Instructions: Return to the emergency department for any new or worsening symptoms. Continue all of your medications as directed Prescriptions: No Action clotrimazole 1 % cream 1 applictn TOP TID Qty: 15 RF: 0 clonazepam 1 mg Tablet 1 mg PO BID PRN (Reason: Anxiety) Qty: 20 RF: 0 ibuprofen 800 mg tablet 800 mg PO TID PRN (Reason: pain) Qty: 10 RF: 0 fluoxetine 20 mg Tablet 20 mg PO DAILY Qty: 10 RF: 0 benztropine 1 mg Tablet 1 mg PO BID Qty: 20 RF: 0 quetiapine 50 mg tablet 50 mg PO TID Qty: 15 RF: 0 paliperidone 9 mg Tablet Extended Release 24hr 9 mg PO QAM Qty: 10 RF: 0
[2019-04-20 00:47] VITALS: BP 104/64; PULSE 72; RESP 15; TEMP 36.6; O2SAT 96; BMI 24.5
[2019-04-20] MEDS: BACITRACIN OINT 0.9 GM PCKT 1 APPLIC TOP (00:52)
== END 2019-04-20 01:01 | disposition home or self-care (01) ==
PROVIDERS: Emergency Provider Emergency Medicine
DX: S60.312A Abrasion of left thumb, initial encounter (principal)
CPT/HCPCS: 99281; 99282

== ENCOUNTER 2019-04-20 03:32 | Emergency (ER) | payer OTHER, MEDICAID, SELFPAY ==
[2019-04-20 03:44] VITALS: BP 144/44; PULSE 88; RESP 16; TEMP 37; O2SAT 98; BMI 24.3
--- NOTE | 2019-04-20 03:47 | ED.URI ---
HPI - URI/Sore Throat General Chief Complaint: Upper Respiratory Symptoms Stated Complaint: cough Time Seen by Provider: 04/20/19 03:46 Source: patient Mode of arrival: Ambulatory Limitations: no limitations History of Present Illness HPI Narrative: 38-year-old male who I evaluated earlier in my shift today for a small abrasion on his left thumb. He had checked in needing antibiotic ointment and a Band-Aid. He returns this evening for cough. Patient is somewhat unable/unwilling to provide more information than this. He states that it started today. He states that he needs a ?inhaler ?he states he has had inhaler in the past and has helped his symptoms. States it is a nonproductive cough. No fevers. Related Data Previous Rx's Medication Instructions Recorded clotrimazole 1 applictn TOP TID #15 gram 08/03/18 clonazepam 1 mg PO BID PRN #20 tab 08/18/18 benztropine 1 mg PO BID #20 tab 09/27/18 fluoxetine 20 mg PO DAILY #10 tab 09/27/18 paliperidone 9 mg PO QAM #10 tab 09/27/18 quetiapine 50 mg PO TID #15 tab 09/27/18 ibuprofen 800 mg PO TID PRN #10 tab 09/30/18 albuterol sulfate 2 puff INHALATION Q4-6H PRN #18 04/20/19 gram Allergies Allergy/AdvReac Type Severity Reaction Status Date / Time No Known Drug Allergies Allergy Verified 01/14/19 21:56 Review of Systems Constitutional Constitutional: Denies fever(s) Cardiovascular Cardiovascular: Denies dyspnea Respiratory Respiratory: Reports cough and Denies dyspnea Neurologic Neurologic: Denies behavioral changes Psychiatric Psychiatric: Denies behavioral changes Patient History Social History Smoking Status: Current every day smoker Smoking Status: Current every day smoker alcohol intake frequency: holidays/special occasions only Substance Use Type: does not use Exam Initial Vital Signs Initial Vital Signs: Vital Signs Temperature 98.6 F 04/20/19 03:44 Pulse Rate 88 04/20/19 03:44 Respiratory Rate 16 04/20/19 03:44 Blood Pressure 144/44 H 04/20/19 03:44 Pulse Oximetry 98 04/20/19 03:44 Const General: disheveled Limitations: mental status not altered Resp Effort & Inspection: normal respiratory effort Auscultation: clear to auscultation bilaterally Cardio Rate: regular rate Rhythm: regular rhythm Psych Appearance: disheveled Scores GCS [place] coma scale eye opening: Spontaneous [place] coma scale verbal response: Orientated [place] coma scale motor response: Obey commands [place] coma scale total score: 15 Course Vital Signs Vital signs: Vital Signs - 8 hr 04/20/19 03:44 Temperature 98.6 F Pulse Rate 88 Respiratory Rate 16 Blood Pressure 144/44 H Pulse Oximetry 98 MDM - URI/Sore Throat MDM Narrative Medical decision making narrative: Patient has clear lungs. He states that he has insurance in order to pay for an inhaler. He states he does needs a prescription. Went back and review the patient's medical record. I have seen this individual before today. He has a history of schizophrenia. He is much more disheveled today from what I remember him from his last visit. I went back and talked with the patient. I asked him how he was doing any answer ?fine? I asked him if he was hearing voices and he said ?sometimes ?I asked him if he was hearing them now and he said ?no? ?it is fine ?. I asked him if he had thoughts of hurting himself and he said no. I asked him if he was taking his medications and he said ?sometimes ?asked if he was taking them now on he said no. He states that he has his medications and he did not need any refills. Asked him if there was anybody active call for him and he said no. It is somewhat cold outside and I have a strong suspicion that his 2 visits this evening were to escape the cold. I asked him when the last time he ate he said yesterday. I asked him if he would like any food in he accepted. Do not feel like he needs any antibiotics. He is alert and oriented x3. Has a GCS of 15. States that he is not suicidal. States that he is not currently hearing voices. Declined offer for medications or mental health assistance. Although he is more did show hold from what I remember him last I do not think he meets criteria for grave disability. I do not feel that he would meet criteria for an involuntary admission. Patient was discharged home with resources. Discharge Plan Departure Patient Disposition: Home Clinical Impression: Cough Instructions: Cough Activity Restrictions/Additional Instructions: I recommend that you use the resources that you were given to help with your living needs. You can contact the health solar resource assessor here at the hospital at [phone] to help you establish a primary provider. Also recommend that you take all of your medications as directed. Return to the emergency department for any new or worsening symptoms Prescriptions: New albuterol sulfate 90 mcg/actuation HFA aerosol inhaler 2 puff INHALATION Q4-6H PRN (Reason: shortness of breath or wheezing) Qty: 18 RF: 0 No Action clotrimazole 1 % cream 1 applictn TOP TID Qty: 15 RF: 0 clonazepam 1 mg Tablet 1 mg PO BID PRN (Reason: Anxiety) Qty: 20 RF: 0 ibuprofen 800 mg tablet 800 mg PO TID PRN (Reason: pain) Qty: 10 RF: 0 fluoxetine 20 mg Tablet 20 mg PO DAILY Qty: 10 RF: 0 benztropine 1 mg Tablet 1 mg PO BID Qty: 20 RF: 0 quetiapine 50 mg tablet 50 mg PO TID Qty: 15 RF: 0 paliperidone 9 mg Tablet Extended Release 24hr 9 mg PO QAM Qty: 10 RF: 0
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
--- NOTE | 2019-04-20 04:08 | PC.NURSE ---
patient provided handouts for local resources; [facility] food [place] and meal programs, Public mental health services in the [facility] area, Publicly funded treatment services in [facility], housing to try in [facility]
== END 2019-04-20 04:28 | disposition home or self-care (01) ==
PROVIDERS: Emergency Provider Emergency Medicine
DX: R05 Cough (principal); F20.9 Schizophrenia, unspecified